=== PATIENT | male | born 1940 | race Caucasian/White ===

== ENCOUNTER 2018-04-25 09:31 | Inpatient (IN) ==
[2018-04-25] MEDS ORDERED: LIDOCAINE HCL 1% 20 ML VIAL ONE (09:51)
[2018-04-25] MEDS ORDERED: NiCARDipine HCL INJ 2.5 MG/ML 10 ML AMP ONE (10:05)
[2018-04-25] MEDS ORDERED: HEPARIN (PORCINE) 1000 UNIT/ML 10 ML (CATH LAB USE ONLY) ONE (10:05)
[2018-04-25] MEDS ORDERED: fentaNYL citrate 100 MCG/2 ML VIAL ONE (10:05)
[2018-04-25] MEDS ORDERED: MIDAZOLAM HCL 1 MG/ML 2ML VIAL ONE (10:05)
[2018-04-25] MEDS ORDERED: NITROGLYCERIN/D5W 100MCG/ML 20ML SYR ONE (10:06)
--- NOTE | 2018-04-25 10:33 | Emergency Department Note ---
Entered by Juana Gavin acting as a scribe for History of Present Illness General Chief complaint: Heart Alert Stated complaint: heart alert Time Seen by Provider: 04/25/18 09:35 History of Present Illness Onset (ago): hour(s) (0820 this moring) Location: chest (sub sternal) Pain Consistency: + other (after shoveling 10-15 feet of snow) Maximum Pain Intensity: 10 Current Pain Intensity: 0 Quality: + other (chest pain, pressure) Associated symptoms: + shortness of breath and + other (Positive nausea, diaphoresis) Treatments prior to arrival: aspirin and other (3 nitro) The patient is a 77 year old male who presents to the Emergency Room with complaints of chest pain beginning around 0820 this morning. As per EMS, the patient went outside at 0600 this morning and was running a snowblower. At 0820 , he went back outside and shoveled about 10-15 feet from the backdoor to this garage when he suddenly developed substernal chest pressure but thought it was indigestion. EMS states the patient sat down but after 20 minutes his pain persisted so he called EMS. When EMS got there, the patient was sitting in a chair and was pale, diaphoretic, nauseous, short of breath, and holding his chest. En route, the patient was given 1 aspirin and a total of 3 nitro with the last being at 1000 this morning. After the medications, the patient's pain came down from a 10/10 in severity to a 7/10. Currently, the patient rates his chest pain as a 0/10 in severity. Home Medications Home Medications Medication Instructions Recorded Confirmed Type atorvastatin 40 mg PO DAILY 04/25/18 04/25/18 History clopidogrel 75 mg PO DAILY 04/25/18 04/25/18 History levothyroxine 175 mcg PO DAILY 04/25/18 04/25/18 History lisinopril 10 mg PO DAILY 04/25/18 04/25/18 History Allergies Allergy/AdvReac Type Severity Reaction Status Date / Time latex Allergy Rash Verified 04/25/18 18:24 Past Med/Surg History Medical History Chronic kidney disease, stage III (moderate) Diet-controlled type 2 diabetes mellitus Displacement of lumbar intervertebral disc without myelopathy Dyslipidemia History of TIA (transient ischemic attack) History of skin cancer Hypertension Hypothyroidism No significant past medical history Peripheral vascular disease Psoriasis vulgaris Sensorineural hearing loss of combined sites Surgical History Status post carotid endarterectomy Family History Other Family history non-contributory Social History marital status: Current Living Situation: Spouse Feels Safe at Home: Yes Safety Concerns: Feels Safe At This Time Smoking Status: Former smoker Hx Alcohol Use: No Hx Substance Use: No Beliefs That Will Affect Care: None Preferred Language: Maltese Communication Ability: Effective Review of Systems See HPI for pertinent positives & negatives. and A total of 10 systems reviewed and were otherwise negative Physical Exam Vital Signs Vital Signs - 24 hr 04/25/18 10:12 04/25/18 10:18 04/25/18 10:27 Temperature Temperature Source Sepsis Recent Fever Within 48 Hours No Sepsis New/Unexplained Change in Mental Status No Sepsis Action Taken by Nursing No Action Required Pulse Rate 68 83 Pulse Rate [Apical] Pulse Rhythm [Apical] Pulse Strength [Apical] Respiratory Rate 17 16 Respiratory Effort / Characteristics Respiratory Depth Respiratory Pattern Blood Pressure 147/75 H Blood Pressure [Left Arm] Blood Pressure Mean 99 Blood Pressure Mean [Left Arm] Blood Pressure Position [Left Arm] Pulse Oximetry 95 Oxygen Delivery Method Nasal Cannula 04/25/18 12:00 04/25/18 12:13 04/25/18 12:15 Temperature 36.6 C Temperature Source Oral Sepsis Recent Fever Within 48 Hours Sepsis New/Unexplained Change in Mental Status Sepsis Action Taken by Nursing Pulse Rate 58 L 59 L Pulse Rate [Apical] 58 L Pulse Rhythm [Apical] Regular Pulse Strength [Apical] Normal Respiratory Rate 18 18 25 H Respiratory Effort / Characteristics Non-Labored Spontaneous Respiratory Depth Normal Respiratory Pattern Regular Blood Pressure 124/61 127/71 Blood Pressure [Left Arm] Blood Pressure Mean 82 89 Blood Pressure Mean [Left Arm] Blood Pressure Position [Left Arm] Pulse Oximetry 98 97 96 Oxygen Delivery Method Room Air Room Air Room Air 04/25/18 12:30 04/25/18 12:44 04/25/18 12:45 Temperature Temperature Source Sepsis Recent Fever Within 48 Hours Sepsis New/Unexplained Change in Mental Status Sepsis Action Taken by Nursing Pulse Rate 58 L 59 L 60 Pulse Rate [Apical] Pulse Rhythm [Apical] Pulse Strength [Apical] Respiratory Rate 17 19 18 Respiratory Effort / Characteristics Respiratory Depth Respiratory Pattern Blood Pressure 131/74 141/67 H Blood Pressure [Left Arm] Blood Pressure Mean 93 91 Blood Pressure Mean [Left Arm] Blood Pressure Position [Left Arm] Pulse Oximetry 97 97 97 Oxygen Delivery Method Room Air Room Air Room Air 04/25/18 13:15 04/25/18 13:30 04/25/18 13:45 Temperature Temperature Source Sepsis Recent Fever Within 48 Hours Sepsis New/Unexplained Change in Mental Status Sepsis Action Taken by Nursing Pulse Rate 60 60 62 Pulse Rate [Apical] Pulse Rhythm [Apical] Pulse Strength [Apical] Respiratory Rate 16 22 20 Respiratory Effort / Characteristics Respiratory Depth Respiratory Pattern Blood Pressure 143/79 H 140/74 156/76 H Blood Pressure [Left Arm] Blood Pressure Mean 100 96 102 Blood Pressure Mean [Left Arm] Blood Pressure Position [Left Arm] Pulse Oximetry 97 98 98 Oxygen Delivery Method Room Air Room Air Room Air 04/25/18 14:00 04/25/18 14:15 04/25/18 14:30 Temperature Temperature Source Sepsis Recent Fever Within 48 Hours Sepsis New/Unexplained Change in Mental Status Sepsis Action Taken by Nursing Pulse Rate 62 60 61 Pulse Rate [Apical] Pulse Rhythm [Apical] Pulse Strength [Apical] Respiratory Rate 17 16 20 Respiratory Effort / Characteristics Respiratory Depth Respiratory Pattern Blood Pressure 144/76 H 146/87 H 148/80 H Blood Pressure [Left Arm] Blood Pressure Mean 98 106 102 Blood Pressure Mean [Left Arm] Blood Pressure Position [Left Arm] Pulse Oximetry 98 98 97 Oxygen Delivery Method Room Air Room Air Room Air 04/25/18 15:00 04/25/18 16:00 04/25/18 17:00 Temperature 36.8 C Temperature Source Sepsis Recent Fever Within 48 Hours Sepsis New/Unexplained Change in Mental Status Sepsis Action Taken by Nursing Pulse Rate 60 66 66 Pulse Rate [Apical] Pulse Rhythm [Apical] Pulse Strength [Apical] Respiratory Rate 20 13 20 Respiratory Effort / Characteristics Respiratory Depth Respiratory Pattern Blood Pressure 162/81 H 167/80 H 153/93 H Blood Pressure [Left Arm] Blood Pressure Mean 108 109 113 Blood Pressure Mean [Left Arm] Blood Pressure Position [Left Arm] Pulse Oximetry 96 98 95 Oxygen Delivery Method Room Air Room Air 04/25/18 18:00 Temperature Temperature Source Sepsis Recent Fever Within 48 Hours Sepsis New/Unexplained Change in Mental Status Sepsis Action Taken by Nursing Pulse Rate Pulse Rate [Apical] 65 Pulse Rhythm [Apical] Regular Pulse Strength [Apical] Normal Respiratory Rate 18 Respiratory Effort / Characteristics Non-Labored Spontaneous Respiratory Depth Normal Respiratory Pattern Regular Blood Pressure Blood Pressure [Left Arm] 131/76 Blood Pressure Mean Blood Pressure Mean [Left Arm] 94 Blood Pressure Position [Left Arm] Lying Pulse Oximetry 96 Oxygen Delivery Method Room Air GENERAL: Patient is awake alert. He is mildly anxious appearing but appears overall comfortable. EYES: The conjunctivae are clear. The pupils are round and reactive. EARS, NOSE, MOUTH AND THROAT: The nose is without any evidence of any deformity. Mucous membranes are moist tongue is midline NECK: The neck is nontender and supple. RESPIRATORY: Normal respiratory effort is noted there is no evidence of wheezing rhonchi or rales CARDIOVASCULAR: Ectopy was noted to auscultation. There is no definite murmur noted. GASTROINTESTINAL: The abdomen is soft. Bowel sounds are present in all quadrants. Abdomen is nontender MUSCULOSKELETAL/EXTREMITIES: There is no evidence of gross deformity full range of motion is noted in the hips and shoulders SKIN: There is no obvious evidence of any rash. Trace pedal edema was noted. Skin was warm and dry. Pulses were symmetric in both wrists. NEUROLOGIC: Patient is awake alert and oriented x3. Course 1009: Past medical records reviewed. The patient was evaluated in room B1, and a complete history and physical examination were performed. 1023: I reviewed the patient's case with Jerad Nieto. He was at the bedside on arrival of the patient. 1025: The patient will be further evaluated at the medical laboratory scientist. 1042: I reviewed the patient's case with BERNARDO Stroud [facility] He will evaluate the patient for further management. Consultations Consultation #1: I reviewed the patient's case with Jerad Nieto. He was at the bedside on arrival of the patient. Time: 10:23 Consultation #2: I reviewed the patient's case with BERNARDO Stroud who is [facility] He will evaluate the patient for further management. Time: 10:42 Administered Medications Al Hydrox/Mg Hydrox/Simethicone (Maalox) 30 ml PO Q6H PRN PRN Reason: Dyspepsia Stop: 05/25/18 18:17 Last Admin: 04/25/18 18:30 Dose: 30 ml Atorvastatin Calcium (Lipitor) 80 mg PO QAM [facility] Stop: 05/25/18 14:29 Last Admin: 04/25/18 17:21 Dose: 80 mg Sodium Chloride (Nss 1000ml) 1,000 mls @ 75 mls/hr IV .[id number] [facility] Stop: 05/25/18 12:29 Last Admin: 04/25/18 13:11 Dose: 75 mls/hr Discontinued Medications Enoxaparin Sodium (Lovenox) 40 mg SQ Q24H [facility] Stop: 05/25/18 13:29 Last Admin: 04/25/18 14:30 Dose: Not Given Fentanyl Citrate (Fentanyl Citrate) Confirm Administered Dose 100 mcg .ROUTE .STK-MED ONE Stop: 04/25/18 10:06 Last Admin: 04/25/18 11:31 Dose: 50 mcg Heparin Sodium (Porcine) (Heparin Iv Bolus (Fisheries Specialist Use Only)) Confirm Administered Dose 10,000 units .ROUTE .STK-MED ONE Stop: 04/25/18 10:06 Last Admin: 04/25/18 11:32 Dose: 10,000 units Heparin Sodium/Sodium Chloride (Heparin Sod/Nss 2 Units/Ml) Confirm Administered Dose 3,000 units IV .STK-MED ONE Stop: 04/25/18 10:07 Last Admin: 04/25/18 11:33 Dose: 3,000 units Labetalol HCl (Normodyne (Fisheries Specialist Use Only)) Confirm Administered Dose 5 mg .ROUTE .STK-MED ONE Stop: 04/25/18 11:24 Last Admin: 04/25/18 11:34 Dose: 10 mg Lidocaine HCl (Xylocaine 1% (Local)) Confirm Administered Dose 20 ml .ROUTE .STK -MED ONE Stop: 04/25/18 09:52 Last Admin: 04/25/18 11:30 Dose: 20 ml Midazolam HCl (Versed) Confirm Administered Dose 2 mg .ROUTE .STK-MED ONE Stop: 04/25/18 10:06 Last Admin: 04/25/18 11:32 Dose: 2 mg Nicardipine HCl (Cardene) Confirm Administered Dose 25 mg .ROUTE .STK-MED ONE Stop: 04/25/18 10:06 Last Admin: 04/25/18 11:31 Dose: 25 mg Nitroglycerin/Dextrose (Nitroglycerin/D5w 100 Mcg/Ml 20ml Syringe) Confirm Administered Dose 2,000 mcg .ROUTE .STK-MED ONE Stop: 04/25/18 10:07 Last Admin: 04/25/18 13:06 Dose: Not Given Ticagrelor (Brilinta) Confirm Administered Dose 180 mg PO .STK-MED ONE Stop: 04/25/18 11:02 Last Admin: 04/25/18 11:33 Dose: 180 mg Medical Decision Making Differential Diagnosis Differential diagnosis: Etiologies such as cardiac ischemia, aortic dissection, pulmonary embolism, pneumonia, pneumothorax, musculoskeletal, infections, pericarditis, myocarditis , esophageal rupture, gastrointestinal, as well as others were entertained. Medical Records Attestation: I reviewed the patient's medical records. Home Medications Current Medication List: was personally reviewed by me Laboratory Data Attestation: I reviewed the patient's lab results. Result diagrams: 04/25/18 10:35 04/25/18 10:35 Lab Results 04/25/18 04/25/18 04/25/18 Range/Units 10:35 10:35 10:35 WBC 12.70 H (4.8-10.8) K/uL RBC 4.60 L (4.7-6.1) M/uL Hgb 14.1 (14.0-18.0) g/dL Hct 42.3 (42-52) % MCV 92.0 (80-100) fL MCH 30.7 (25-34) pg MCHC 33.3 (32-36) g/dL RDW Std Deviation 43.8 (36.4-46.3) fL RDW Coeff of Shyam 13.1 (11.5-14.5) % Plt Count 248 (130-400) K/uL MPV 11.2 H (7.4-10.4) fL Immature Gran % (Auto) 0.3 % Neut % (Auto) 77.6 % Lymph % (Auto) 13.3 % Cocke % (Auto) 8.0 % Eos % (Auto) 0.6 % Baso % (Auto) 0.2 % Immature Gran # (Auto) 0.04 H (0.00-0.02) K/uL Neut # (Auto) 9.86 H (1.4-6.5) K/uL Lymph # (Auto) 1.69 (1.2-3.4) K/uL Cocke # (Auto) 1.01 H (0.11-0.59) K/uL Eos # (Auto) 0.07 (0-0.5) K/uL Baso # (Auto) 0.03 (0-0.2) K/uL PT 11.1 (9.0-12.0) Seconds INR 1.1 (0.9-1.1) APTT 98.2 H* (21.0-31.0) Seconds PTT Ratio 3.8 Sodium 138 (136-145) mmol/L Potassium 4.1 (3.5-5.1) mmol/L Chloride 109 H (98-107) mmol/L Carbon Dioxide 21 (21-32) mmol/L Anion Gap 8.0 (3-11) BUN 25 H (7-18) mg/dl Creatinine 1.21 (0.6-1.4) mg/dl Est Cr Clr Drug Dosing 67.0 ml/min Est GFR ( Amer) 65.6 Est GFR (Non-Af Amer) 56.6 BUN/Creatinine Ratio 20.6 H (10-20) Glucose 187 H (70-99) mg/dl POC Glucose (70-99) Calcium 8.3 L (8.5-10.1) mg/dl Magnesium (1.8-2.4) mg/dl Total Bilirubin 0.6 (0.2-1) mg/dl AST 33 (15-37) U/L ALT 44 (12-78) U/L Alkaline Phosphatase 55 (45-117) U/L Total Creatine Kinase 219 (39-308) U/L CK-MB (CK-2) 4.3 H (0.5-3.6) ng/ml CK/CKMB % Calc 2.0 (0-3.0) Troponin I 0.110 H* (0-0.045) ng/ml Total Protein 6.8 (6.4-8.2) gm/dl Albumin 3.0 L (3.4-5.0) gm/dl Globulin 3.8 (2.5-4.0) gm/dl Albumin/Globulin Ratio 0.8 L (0.9-2) Triglycerides Cholesterol LDL Cholesterol, Calc VLDL Cholesterol, Calc HDL Cholesterol Cholesterol/HDL Ratio Lipase 126 (73-393) U/L Nasal Screen MRSA (PCR) (Negative) 04/25/18 04/25/18 04/25/18 Range/Units 10:35 10:35 11:55 WBC (4.8-10.8) K/uL RBC (4.7-6.1) M/uL Hgb (14.0-18.0) g/dL Hct (42-52) % MCV (80-100) fL MCH (25-34) pg MCHC (32-36) g/dL RDW Std Deviation (36.4-46.3) fL RDW Coeff of Shyam (11.5-14.5) % Plt Count (130-400) K/uL MPV (7.4-10.4) fL Immature Gran % (Auto) % Neut % (Auto) % Lymph % (Auto) % Cocke % (Auto) % Eos % (Auto) % Baso % (Auto) % Immature Gran # (Auto) (0.00-0.02) K/uL Neut # (Auto) (1.4-6.5) K/uL Lymph # (Auto) (1.2-3.4) K/uL Cocke # (Auto) (0.11-0.59) K/uL Eos # (Auto) (0-0.5) K/uL Baso # (Auto) (0-0.2) K/uL PT (9.0-12.0) Seconds INR (0.9-1.1) APTT (21.0-31.0) Seconds PTT Ratio Sodium (136-145) mmol/L Potassium (3.5-5.1) mmol/L Chloride (98-107) mmol/L Carbon Dioxide (21-32) mmol/L Anion Gap (3-11) BUN (7-18) mg/dl Creatinine (0.6-1.4) mg/dl Est Cr Clr Drug Dosing ml/min Est GFR ( Amer) Est GFR (Non-Af Amer) BUN/Creatinine Ratio (10-20) Glucose (70-99) mg/dl POC Glucose (70-99) Calcium (8.5-10.1) mg/dl Magnesium 2.0 (1.8-2.4) mg/dl Total Bilirubin (0.2-1) mg/dl AST (15-37) U/L ALT (12-78) U/L Alkaline Phosphatase (45-117) U/L Total Creatine Kinase (39-308) U/L CK-MB (CK-2) (0.5-3.6) ng/ml CK/CKMB % Calc (0-3.0) Troponin I (0-0.045) ng/ml Total Protein (6.4-8.2) gm/dl Albumin (3.4-5.0) gm/dl Globulin (2.5-4.0) gm/dl Albumin/Globulin Ratio (0.9-2) Triglycerides Cancelled 130 Cholesterol Cancelled 145 LDL Cholesterol, Calc Cancelled 78 VLDL Cholesterol, Calc Cancelled 26 HDL Cholesterol Cancelled 41 Cholesterol/HDL Ratio Cancelled 4 Lipase (73-393) U/L Nasal Screen MRSA (PCR) Negative (Negative) 04/25/18 04/25/18 Range/Units 16:41 17:57 WBC (4.8-10.8) K/uL RBC (4.7-6.1) M/uL Hgb (14.0-18.0) g/dL Hct (42-52) % MCV (80-100) fL MCH (25-34) pg MCHC (32-36) g/dL RDW Std Deviation (36.4-46.3) fL RDW Coeff of Shyam (11.5-14.5) % Plt Count (130-400) K/uL MPV (7.4-10.4) fL Immature Gran % (Auto) % Neut % (Auto) % Lymph % (Auto) % Cocke % (Auto) % Eos % (Auto) % Baso % (Auto) % Immature Gran # (Auto) (0.00-0.02) K/uL Neut # (Auto) (1.4-6.5) K/uL Lymph # (Auto) (1.2-3.4) K/uL Cocke # (Auto) (0.11-0.59) K/uL Eos # (Auto) (0-0.5) K/uL Baso # (Auto) (0-0.2) K/uL PT (9.0-12.0) Seconds INR (0.9-1.1) APTT (21.0-31.0) Seconds PTT Ratio Sodium (136-145) mmol/L Potassium (3.5-5.1) mmol/L Chloride (98-107) mmol/L Carbon Dioxide (21-32) mmol/L Anion Gap (3-11) BUN (7-18) mg/dl Creatinine (0.6-1.4) mg/dl Est Cr Clr Drug Dosing ml/min Est GFR ( Amer) Est GFR (Non-Af Amer) BUN/Creatinine Ratio (10-20) Glucose (70-99) mg/dl POC Glucose 118 H (70-99) Calcium (8.5-10.1) mg/dl Magnesium (1.8-2.4) mg/dl Total Bilirubin (0.2-1) mg/dl AST (15-37) U/L ALT (12-78) U/L Alkaline Phosphatase (45-117) U/L Total Creatine Kinase (39-308) U/L CK-MB (CK-2) (0.5-3.6) ng/ml CK/CKMB % Calc (0-3.0) Troponin I 4.720 H* (0-0.045) ng/ml Total Protein (6.4-8.2) gm/dl Albumin (3.4-5.0) gm/dl Globulin (2.5-4.0) gm/dl Albumin/Globulin Ratio (0.9-2) Triglycerides Cholesterol LDL Cholesterol, Calc VLDL Cholesterol, Calc HDL Cholesterol Cholesterol/HDL Ratio Lipase (73-393) U/L Nasal Screen MRSA (PCR) (Negative) ECG Data Attestation: I personally reviewed and interpreted this ECG as follows: Indication: chest pain Rate (beats per minute): 62 Rhythm: normal sinus Findings: + other (persistence of previously noted ST depression) and + PAC Additional Comments: Pre hospital EKG: sinus bradycardia, 59, no ectopy, inferior and anterior ST depressions noted, lateral TWI, appears to be consistent with posterior wall NM Second pre hospital EKG: normal sinus, 60, PAC, diffuse ST depressions noted, similar to earlier tracing Blood Pressure Blood Pressure Findings: Elevated blood pressure Blood Pressure Disposition: further management by hospitalist TONI Caraballo The patient is a 77-year-old male who presented to the emergency department for an evaluation of chest discomfort. The patient developed chest discomfort while shoveling snow. I was notified by the prehospital personnel that they were concerned the patient's EKG was consistent with an acute NM. We were unable to receive the patient's EKG initially but because of the current weather conditions and the paramedics read on the EKG the patient was made a heart alert prior to receiving his EKG. The patient was 40 minutes out initially so we were able to assemble the cardiac catheterization team prior to the patient's arrival. When he arrived to the emergency department I reviewed the patient's EKGs which did arrive shortly before the patient did reveal signs of ischemia with posterior wall NM. The patient was treated with aspirin and nitroglycerin prior to arrival. Upon arrival he did not have any further chest pain. The patient was evaluated by myself as well as the sand cutter operator immediately upon arrival. The patient's findings were felt to be consistent with acute ischemia. For this reason the patient was taken directly to the cardiac catheterization lab. I discussed the patient's EKG and presentation with him. He was agreeable to cardiac catheterization at this time. I also discussed his findings with his significant other. I also discussed this case with the on-call [facility] hospitalist group. They have agreed to evaluate the patient after cardiac catheterization for further inpatient management. Impression & Plan Acute NM, true posterior wall, Unstable angina Discharge Plan Visit Data *Final* Discharge Date/Time: 04/25/18 10:34 Chief Complaint: Heart Alert Stated Complaint: heart alert ED Provider: Jl Agarwal Discharge Problem: Acute NM, true posterior wall, Unstable angina Patient Disposition: Still a Patient Discharge Instructions Interventions: ED Discharge Assessment Last Done: 04/25/18 10:34 The scribe's documentation has been prepared under my direction and personally reviewed by me in its entirety. I confirm that the note above accurately reflects all work, treatment, procedures, and medical decision making performed by me.
[2018-04-25 10:45] LABS: Basophils # (auto) 0.03 K/uL (0-0.2); Basophils % (auto) 0.2 %; Eosinophils # (auto) 0.07 K/uL (0-0.5); Eosinophils % (auto) 0.6 %; Hematocrit (blood only) 42.3 % (42-52); Hemoglobin 14.1 g/dL (14.0-18.0); Immature Granulocytes # (auto) 0.04 K/uL (0.00-0.02); Immature Granulocytes % (auto) 0.3 %; Lymphocytes # (auto) 1.69 K/uL (1.2-3.4); Lymphocytes % (auto) 13.3 %; Mean Corpuscular Hgb Conc 33.3 g/dL (32-36); Mean Platelet Volume 11.2 fL (7.4-10.4); Monocytes # (auto) 1.01 K/uL (0.11-0.59); Neutrophils # (auto) 9.86 K/uL (1.4-6.5); Neutrophils % (auto) 77.6 %; Platelet Count 248 K/uL (130-400); RDW Coefficient of Variation 13.1 % (11.5-14.5); RDW Standard Deviation 43.8 fL (36.4-46.3)
[2018-04-25] MEDS ORDERED: TICAGRELOR 90 MG TAB PO ONE (11:01)
[2018-04-25 11:02] LABS: BUN Creatinine Ratio 20.6 (10-20); Calcium 8.3 mg/dl (8.5-10.1); Est GFR (African American) 65.6; Est GFR (Non-African American) 56.6; Potassium 4.1 mmol/L (3.5-5.1)
[2018-04-25 11:04] LABS: INR 1.1 (0.9-1.1); Partial Thromboplastin Ratio 3.8; Prothrombin Time 11.1 Seconds (9.0-12.0)
[2018-04-25 11:07] LABS: Partial Thromboplastin Time 98.2 Seconds (21.0-31.0)
[2018-04-25 11:12] LABS: Albumin Globulin Ratio 0.8 (0.9-2); Bilirubin,Total 0.6 mg/dl (0.2-1); Creatine Kinase MB 4.3 ng/ml (0.5-3.6); Globulin 3.8 gm/dl (2.5-4.0); Total Protein 6.8 gm/dl (6.4-8.2); Troponin I 0.11 ng/ml (0-0.045)
[2018-04-25] MEDS ORDERED: ICU PROTOCOL FOR HYPERGLYCEMIA PRN (11:15)
[2018-04-25] MEDS ORDERED: LABETALOL HCL IV 5 MG/ML 20ML (CATH LAB USE ONLY) ONE (11:23)
[2018-04-25] MEDS ORDERED: ACETAMINOPHEN 325 MG TAB PO PRN (11:26)
[2018-04-25] MEDS ORDERED: ATROPINE SULFATE 0.1 MG/ML 10ML SYR IV PRN (11:26)
[2018-04-25] MEDS ORDERED: ONDANSETRON INJ 2 MG/ML 2 ML VIAL IV PRN (11:26)
--- NOTE | 2018-04-25 11:48 | History & Physical Report ---
Date of Service April 25, 2018 Assessment & Plan (1) Acute OR, true posterior wall: Patient presented to ED from home via ambulance Heart alert called and patient seen by Dr. Kim Taken to cardiac Biology Manager and PCI was performed with single drug-eluting stent Patient was started on Brilinta Patient is on clopidogrel at home Continue aspirin 81 mg p.o. daily Start Lopressor 25 mg p.o. twice daily Transfer to the intensive care unit for monitoring for bleeding Previous echocardiogram in June 2014 with left ventricular ejection fraction of 64%. LV wall thickness mildly increased. Aortic valve was mildly calcified but not stenosed. Estimated pulmonary arterial the systolic pressures 22 mmHg. No other valvular disease or wall motion irregularity Present on Admission?: Yes (2) Chronic kidney disease, stage III (moderate): Creatinine is 1.21 with a BUN of 25 GFR 56 Follow serial labs Patient with chronic kidney disease stage III listed in his outpatient chart (3) Hypothyroidism: Check a TSH Continue levothyroxine 175 micrograms p.o. daily (4) Hypertension: Continue lisinopril 5 mg p.o. daily Monitor on telemetry (5) Dyslipidemia: Atorvastatin 40 mg p.o. daily (6) Diet-controlled type 2 diabetes mellitus: Outpatient hemoglobin A1c November 2017 was 6.4 (7) History of TIA (transient ischemic attack): Currently takes clopidogrel 75 mg p.o. daily and aspirin 81 mg p.o. daily (8) DVT prophylaxis: Patient on clopidogrel as an outpatient Started on Brilinta by Dr. Kim Further chemical prophylaxis per cardiology Dr. Wood will be the attending for this patient. Please refer to his addendum for further recommendations regarding treatment plan. History of Present Illness Primary Care Provider: Reed Britton Attending physician will be Dr. Wood This is a 77-year-old male who was shoveling snow this morning with chest pain. 911 was called and the ambulance transported the patient from his home to [facility] emergency department. Patient was found to have ST changes in the posterior section with rapid development of further ST changes. A heart alert was called and patient was presented to the cardiac catheterization lab with Dr. Kim. A single drug-eluting stent was placed to the RCA. Patient had no complications from the procedure. Patient was started on Brilinta. It was then discovered the patient was also on clopidogrel at home per patient list from [facility] in [place]. This will be clarified by the patient's family who does not have a med list or meds present at this time. The patient follows with Dr. Britton at the [facility]. He has a past medical history of peripheral vascular disease, stage III chronic kidney disease, hypothyroidism, psoriasis vulgaris, hearing loss, hypertension, dyslipidemia, and history of TIA, diabetes mellitus type 2. His most recent hemoglobin A1c was in November 2017 and was 6.4. The patient denies any insulin use or diabetic oral medications. The patient was seen in the catheterization lab status post PCI and had no chest pain, nausea, vomiting, diarrhea. He has no recent illness. He was doing well until this morning when he had the chest pain. He denies any dysphasia. He has no difficulty with eating. He is a former smoker having quit smoking April 06, 1959 with a 1 pack/day 10- pack-year history He lives with his and Meño Garrison. In discussion with his he is a level 1 full code. Outpatient medications include: Levothyroxine 175 mcg daily Lisinopril 5 mg p.o. daily Clopidogrel 75 mg daily Lipitor 40 mg p.o. daily Lorazepam 0.5 mg 3 times daily as needed for anxiety Aspirin 81 mg p.o. daily Allergies Allergy/AdvReac Type Severity Reaction Status Date / Time latex Allergy Rash Verified 04/25/18 18:24 Home Medications Home Medications Medication Instructions Recorded Confirmed Type atorvastatin 40 mg PO DAILY 04/25/18 04/25/18 History clopidogrel 75 mg PO DAILY 04/25/18 04/25/18 History levothyroxine 175 mcg PO DAILY 04/25/18 04/25/18 History lisinopril 10 mg PO DAILY 04/25/18 04/25/18 History Past Med/Surg History Medical History Chronic kidney disease, stage III (moderate) Diet-controlled type 2 diabetes mellitus Displacement of lumbar intervertebral disc without myelopathy Dyslipidemia History of TIA (transient ischemic attack) History of skin cancer Hypertension Hypothyroidism No significant past medical history Peripheral vascular disease Psoriasis vulgaris Sensorineural hearing loss of combined sites Surgical History Status post carotid endarterectomy Family History Other Family history non-contributory Social History marital status: Current Living Situation: Spouse Feels Safe at Home: Yes Safety Concerns: Feels Safe At This Time Smoking Status: Former smoker Hx Alcohol Use: No Hx Substance Use: No Beliefs That Will Affect Care: None Preferred Language: Sierra Leonean Communication Ability: Effective Review of Systems All systems reviewed & are unremarkable except as noted in HPI & below Physical Exam 2 Vital Signs (Past 24 Hours): Last Vital Signs Pulse 83 04/25/18 10:18 Resp 16 04/25/18 10:18 BP 147/75 H 04/25/18 10:12 Pulse Ox 95 04/25/18 10:12 Physical Exam: GENERAL : No acute distress. Pleasant EYES: No icterus, gaze conjugate NOSE: No evidence of epistaxis MOUTH: No lesions or candidiasis NECK: Supple, no carotid bruits or stridor appreciated. There is a well- healed surgical scar over the right carotid artery LUNGS: CTA B/L, no wheezes, rales or rhonchi HEART: Regular, rate controlled. No ectopy ABDOMEN: Soft, NT, ND, BS Present EXTREMITIES: No LE edema, palpable pedal pulse intact on right. Pedal pulse by doppler on left. Left foot is cooler than right foot NEURO: A&OX3 Results & Data Laboratory Results 04/25/18 04/25/18 04/25/18 10:35 10:35 10:35 WBC 12.70 H RBC 4.60 L Hgb 14.1 Hct 42.3 MCV 92.0 MCH 30.7 MCHC 33.3 RDW Std Deviation 43.8 RDW Coeff of Shyam 13.1 Plt Count 248 MPV 11.2 H Immature Gran % (Auto) 0.3 Neut % (Auto) 77.6 Lymph % (Auto) 13.3 [place] % (Auto) 8.0 Eos % (Auto) 0.6 Baso % (Auto) 0.2 Immature Gran # (Auto) 0.04 H Neut # (Auto) 9.86 H Lymph # (Auto) 1.69 [place] # (Auto) 1.01 H Eos # (Auto) 0.07 Baso # (Auto) 0.03 PT 11.1 INR 1.1 APTT 98.2 H* PTT Ratio 3.8 Sodium 138 Potassium 4.1 Chloride 109 H Carbon Dioxide 21 Anion Gap 8.0 BUN 25 H Creatinine 1.21 Est Cr Clr Drug Dosing 67.0 Est GFR ( Amer) 65.6 Est GFR (Non-Af Amer) 56.6 BUN/Creatinine Ratio 20.6 H Glucose 187 H Calcium 8.3 L Total Bilirubin 0.6 AST 33 ALT 44 Alkaline Phosphatase 55 Total Creatine Kinase 219 CK-MB (CK-2) 4.3 H CK/CKMB % Calc 2.0 Troponin I 0.110 H* Total Protein 6.8 Albumin 3.0 L Globulin 3.8 Albumin/Globulin Ratio 0.8 L Lipase 126 Code Status & VTE Plan Code Status Level One full code VTE Prophylaxis Plan VTE Prophylaxis will be ordered: Yes Critical Care Time Critical Care Time: No Supervising Physician Co-Signing Physician Notes Attending Addendum: care coordinated with BERNARDO Alegria please refer to her notes for full details, I agree with her notes patient seen and examined, records reviewed by myself as well on exam, patient seen resting in bed, comfortable chest pain free in good spirits no other symptoms VS noted and reviewed oriented x 3 , not in distress, speaks in sentences with no effort nor accessory muscle use normal rate, regular rhythm, no murmurs clear breath sounds bilaterally non distended, soft, nontender no bipedal edema, erythema, warmth no neuro deficits WBC 12.7 Hg 14 Crea 1.2 ASSESSMENT AND PLAN> ACUTE OR s/p stent on ASA, Brillinta, Metoprolol monitor in ICU HTN continue Lisinopril other diagnoses and plan of care as per BERNARDO Alegria Notes Augusto Wood MD
[2018-04-25] MEDS: SODIUM CHLORIDE 0.9% 1000ML 1,000 ML IV SCH ×2 (13:11→22:36)
[2018-04-25] MEDS ORDERED: ENOXAPARIN INJ 40 MG/0.4 ML SYR SQ SCH (13:30)
--- NOTE | 2018-04-25 14:10 | Critical Care Consultation ---
Date of Consultation April 25, 2018 Assessment & Plan (1) Acute AR, true posterior wall: Continue Brilinta per cardiology Continue aspirin 81 mg p.o. daily Start Lopressor 25 mg p.o. twice daily Echocardiogram pending (2) Chronic kidney disease, stage III (moderate): Normal saline 75 mils per hour (3) Hypothyroidism: Continue outpatient supplemental thyroid (4) Hypertension: Continue lisinopril 5 mg p.o. daily Monitor on telemetry (5) Dyslipidemia: High intensity statin (6) Diet-controlled type 2 diabetes mellitus: Outpatient hemoglobin A1c November 2017 was 6.4 (7) History of TIA (transient ischemic attack): Brilinta and aspirin (8) DVT prophylaxis: Lovenox 40 mg daily History of Present Illness Reason for Consultation: Still elevation AR Requesting Physician: Augusto Reyes Attending Physician: Alfredo Bundy, History of Present Illness Patient is a 77-year-old male with a past medical history of hypothyroidism, hypertension, hyperlipidemia, anxiety, coronary artery disease, history of TIA who presented after chest pain following shoveling snow in his drive. In the emergency department he was treated as a heart alert and taken to the [facility]. In the [facility] he received a single drug-eluting stent. Patient had some mild oozing from the femoral cannulation site. He has had complete resolution of his chest pain. Allergies Allergy/AdvReac Type Severity Reaction Status Date / Time No Known Allergies Allergy Unverified 04/25/18 10:20 Home Medications Home Medications Medication Instructions Recorded Confirmed Type atorvastatin 40 mg PO DAILY 04/25/18 04/25/18 History clopidogrel 75 mg PO DAILY 04/25/18 04/25/18 History levothyroxine 175 mcg PO DAILY 04/25/18 04/25/18 History lisinopril 10 mg PO DAILY 04/25/18 04/25/18 History Patient History Medical History Chronic kidney disease, stage III (moderate) Diet-controlled type 2 diabetes mellitus Displacement of lumbar intervertebral disc without myelopathy Dyslipidemia History of TIA (transient ischemic attack) History of skin cancer Hypertension Hypothyroidism No significant past medical history Peripheral vascular disease Psoriasis vulgaris Sensorineural hearing loss of combined sites Surgical History Status post carotid endarterectomy Family History Other Family history non-contributory Social History marital status: Current Living Situation: Spouse Feels Safe at Home: Yes Safety Concerns: Feels Safe At This Time Smoking Status: Former smoker Hx Alcohol Use: No Hx Substance Use: No Beliefs That Will Affect Care: None Preferred Language: [place]araguan Communication Ability: Effective Review of Systems Denies chest pain shortness of breath, change in bowel habits, melena, hematochezia Review of systems are otherwise negative Physical Exam 2 Vital Signs (Past 24 Hours): Last Vital Signs Temp 36.6 C 04/25/18 12:13 Pulse 60 04/25/18 12:45 Resp 18 04/25/18 12:45 BP 141/67 H 04/25/18 12:45 Pulse Ox 97 04/25/18 12:45 General: A well-nourished elderly male who appears stated age I have reviewed the recorded vital signs Neurological: RASS score: +1, Moves all 4 extremities, Psychological: GCS 15 following complex commands Eyes: Pupils are equal, round and reactive to light, anicteric sclera. Symmetrical lids. HENT: Oropharynx is clear, mucous membranes are moist, . Neck: Supple. Symmetric. trachea midline. No thyromegaly. Cardiovascular: Normal peripheral perfusion. Distal pulses and capillary refill intact. No JVD. Respiratory: Respirations are non-labored, no accessory muscle use. Breath sounds are equal. Gastrointestinal: Soft. Non-distended. Lymphatic: No cervical lymphadenopathy. Musculoskeletal: No deformity. No clubbing nor cyanosis. Results & Data Laboratory Results 04/25/18 04/25/18 04/25/18 Range/Units 11:55 10:35 10:35 WBC (4.8-10.8) K/uL RBC (4.7-6.1) M/uL Hgb (14.0-18.0) g/dL Hct (42-52) % MCV (80-100) fL MCH (25-34) pg MCHC (32-36) g/dL RDW Std Deviation (36.4-46.3) fL RDW Coeff of Shyam (11.5-14.5) % Plt Count (130-400) K/uL MPV (7.4-10.4) fL Immature Gran % (Auto) % Neut % (Auto) % Lymph % (Auto) % [place] % (Auto) % Eos % (Auto) % Baso % (Auto) % Immature Gran # (Auto) (0.00-0.02) K/uL Neut # (Auto) (1.4-6.5) K/uL Lymph # (Auto) (1.2-3.4) K/uL [place] # (Auto) (0.11-0.59) K/uL Eos # (Auto) (0-0.5) K/uL Baso # (Auto) (0-0.2) K/uL PT (9.0-12.0) Seconds INR (0.9-1.1) APTT (21.0-31.0) Seconds PTT Ratio Sodium (136-145) mmol/L Potassium (3.5-5.1) mmol/L Chloride (98-107) mmol/L Carbon Dioxide (21-32) mmol/L Anion Gap (3-11) BUN (7-18) mg/dl Creatinine (0.6-1.4) mg/dl Est Cr Clr Drug Dosing ml/min Est GFR ( Amer) Est GFR (Non-Af Amer) BUN/Creatinine Ratio (10-20) Glucose (70-99) mg/dl Calcium (8.5-10.1) mg/dl Magnesium 2.0 (1.8-2.4) mg/dl Total Bilirubin (0.2-1) mg/dl AST (15-37) U/L ALT (12-78) U/L Alkaline Phosphatase (45-117) U/L Total Creatine Kinase (39-308) U/L CK-MB (CK-2) (0.5-3.6) ng/ml CK/CKMB % Calc (0-3.0) Troponin I (0-0.045) ng/ml Total Protein (6.4-8.2) gm/dl Albumin (3.4-5.0) gm/dl Globulin (2.5-4.0) gm/dl Albumin/Globulin Ratio (0.9-2) Triglycerides 130 Cancelled Cholesterol 145 Cancelled LDL Cholesterol, Calc 78 Cancelled VLDL Cholesterol, Calc 26 Cancelled HDL Cholesterol 41 Cancelled Cholesterol/HDL Ratio 4 Cancelled Lipase (73-393) U/L Nasal Screen MRSA (PCR) Pending 04/25/18 04/25/18 04/25/18 Range/Units 10:35 10:35 10:35 WBC 12.70 H (4.8-10.8) K/uL RBC 4.60 L (4.7-6.1) M/uL Hgb 14.1 (14.0-18.0) g/dL Hct 42.3 (42-52) % MCV 92.0 (80-100) fL MCH 30.7 (25-34) pg MCHC 33.3 (32-36) g/dL RDW Std Deviation 43.8 (36.4-46.3) fL RDW Coeff of Shyam 13.1 (11.5-14.5) % Plt Count 248 (130-400) K/uL MPV 11.2 H (7.4-10.4) fL Immature Gran % (Auto) 0.3 % Neut % (Auto) 77.6 % Lymph % (Auto) 13.3 % [place] % (Auto) 8.0 % Eos % (Auto) 0.6 % Baso % (Auto) 0.2 % Immature Gran # (Auto) 0.04 H (0.00-0.02) K/uL Neut # (Auto) 9.86 H (1.4-6.5) K/uL Lymph # (Auto) 1.69 (1.2-3.4) K/uL [place] # (Auto) 1.01 H (0.11-0.59) K/uL Eos # (Auto) 0.07 (0-0.5) K/uL Baso # (Auto) 0.03 (0-0.2) K/uL PT 11.1 (9.0-12.0) Seconds INR 1.1 (0.9-1.1) APTT 98.2 H* (21.0-31.0) Seconds PTT Ratio 3.8 Sodium 138 (136-145) mmol/L Potassium 4.1 (3.5-5.1) mmol/L Chloride 109 H (98-107) mmol/L Carbon Dioxide 21 (21-32) mmol/L Anion Gap 8.0 (3-11) BUN 25 H (7-18) mg/dl Creatinine 1.21 (0.6-1.4) mg/dl Est Cr Clr Drug Dosing 67.0 ml/min Est GFR ( Amer) 65.6 Est GFR (Non-Af Amer) 56.6 BUN/Creatinine Ratio 20.6 H (10-20) Glucose 187 H (70-99) mg/dl Calcium 8.3 L (8.5-10.1) mg/dl Magnesium (1.8-2.4) mg/dl Total Bilirubin 0.6 (0.2-1) mg/dl AST 33 (15-37) U/L ALT 44 (12-78) U/L Alkaline Phosphatase 55 (45-117) U/L Total Creatine Kinase 219 (39-308) U/L CK-MB (CK-2) 4.3 H (0.5-3.6) ng/ml CK/CKMB % Calc 2.0 (0-3.0) Troponin I 0.110 H* (0-0.045) ng/ml Total Protein 6.8 (6.4-8.2) gm/dl Albumin 3.0 L (3.4-5.0) gm/dl Globulin 3.8 (2.5-4.0) gm/dl Albumin/Globulin Ratio 0.8 L (0.9-2) Triglycerides Cholesterol LDL Cholesterol, Calc VLDL Cholesterol, Calc HDL Cholesterol Cholesterol/HDL Ratio Lipase 126 (73-393) U/L Nasal Screen MRSA (PCR) Diagnostic Findings At the time of this dictation the patient's EKG was unavailable for review
--- NOTE | 2018-04-25 14:50 | Cardiology Consultation ---
Date of Consultation April 25, 2018 Assessment & Plan (1) Acute IA, true posterior wall: Complete post cardiac catheterization femoral arterial recovery protocol. Medical management: Aspirin 81 mg daily, discontinue home clopidogrel in favor of Brilinta 90 mg twice daily. Start metoprolol tartrate and titrate as tolerated. Continue prior to hospital dose of lisinopril 10 mg by mouth daily, next dose due tomorrow, 04/26/18. Patient was on atorvastatin 40 mg daily at baseline with reasonably well- controlled LDL cholesterol by laboratory study, however given his diffuse atherosclerotic disease will increase to 80 mg daily for secondary prevention of IA. Echocardiogram has been requested, will hold off on completing this until tomorrow so the patient will be able to roll which will allow for better visualization from a technical standpoint. (2) HTN (hypertension): Proceed with treatment with metoprolol and lisinopril. (3) Dyslipidemia: Atorvastatin 80 mg by mouth daily. History of Present Illness Attending Physician: Alfredo Bundy, History of Present Illness Tracey Armstrong is a 77-year-old male seen in cardiology consultation per the request of Dr. Kim of interventional cardiology to assume general cardiology care with the patient having had an emergent cardiac catheterization today for an acute myocardial infarction. The patient was apparently in his normal state of health this morning. Just before 9 AM he was shoveling snow at his residence in [place] and had onset of acute chest discomfort. EMS was summoned and initial EKG performed by EMS on 04/25/18 at 9:[address] segment depression in lead II as well as somewhat diffuse ST depression in leads V2 to V6 and subtle J-point elevation in lead III. There is also ST segment depression in leads I and aVL, and ST elevation in lead aVR. Due to concerns the patient was having an acute posterior wall myocardial infarction. EMS contacted medical command and the decision was made to transfer the patient by ground directly to the [facility] for further treatment. The"Heart Alert" protocol was therefore activated with the patient still 45 minutes away from the hospital. Upon arrival he was assessed by Dr. Kim was taken to the cardiac catheterization laboratory from the emergency room in an emergent fashion. Access was attempted via the right radial artery was unsuccessful and the patient ultimately underwent cardiac catheterization via right femoral arterial access. The patient was found to have a culprit proximal to mid circumflex coronary lesion and underwent percutaneous coronary intervention and placement of a 3.0 x 28 mm Xience Any drug-eluting stent at 10:41 AM. The patient was found to have an intermediate mid LAD lesion for which initial medical management is recommended. He was also found to have a diffusely diseased right coronary artery with diffuse high-grade stenosis starting from the ostial portion of the RCA, with noted left to right collaterals to the distal RCA territory. The patient had already been on chronic aspirin and clopidogrel medication due to his history of peripheral arterial disease and cerebrovascular disease. He therefore received a loading dose of Brilinta in the cardiac [employer] [facility] [employer]. He has been hypertensive in the [employer] and received a dose of IV labetalol, and his pressures have improved. The patient was assessed by the undersigned in ICU room 104. He was supine, recovering from right femoral arterial access was comfortable with absolutely no additional anginal complaints. Follow-up EKG on arrival to the ICU at 12 noon revealed improvement in the previously noted diffuse ST changes. PAST MEDICAL / SURGICAL HISTORY: 1. Long-standing history of type 2 diabetes mellitus apparently managed with diet with most recent hemoglobin A1c in November 2017 of 6.4%. 2. Hypertension 3. Dyslipidemia 4. Cerebrovascular disease with right carotid endarterectomy in [address] Roque with stroke predating surgery 5. History of peripheral arterial disease underwent left common iliac stent, left superficial femoral artery stent, left [id number] popliteal artery stent, Dr. Mercer, [facility] vascular surgery, 01/11/16. His recent vascular surgery follow-up had been in 2017. 6. Patient is not previously followed with cardiology, there is a resting outpatient transthoracic echocardiogram in his outpatient chart dated 06/14/2014 at which time the ejection fraction was calculated to be 64%. Mild concentric left ventricular hypertrophy was present. The left ventricular wall motion was normal without regional wall motion abnormalities. Mild aortic valve calcification without aortic stenosis was noted. 7. Past remote cigarette smoking FAMILY HISTORY: Per the patient's outpatient chart his father in his 70s with history of a "heart disorder "details unknown SOCIAL HISTORY: Former smoker, 1 pack/day, quit in 1959, 10 pack years Allergies Allergy/AdvReac Type Severity Reaction Status Date / Time No Known Allergies Allergy Unverified 04/25/18 10:20 Home Medications Home Medications Medication Instructions Recorded Confirmed Type atorvastatin 40 mg PO DAILY 04/25/18 04/25/18 History clopidogrel 75 mg PO DAILY 04/25/18 04/25/18 History levothyroxine 175 mcg PO DAILY 04/25/18 04/25/18 History lisinopril 10 mg PO DAILY 04/25/18 04/25/18 History Patient History Medical History Chronic kidney disease, stage III (moderate) Diet-controlled type 2 diabetes mellitus Displacement of lumbar intervertebral disc without myelopathy Dyslipidemia History of TIA (transient ischemic attack) History of skin cancer Hypertension Hypothyroidism No significant past medical history Peripheral vascular disease Psoriasis vulgaris Sensorineural hearing loss of combined sites Surgical History Status post carotid endarterectomy Family History Other Family history non-contributory Social History marital status: Current Living Situation: Spouse Feels Safe at Home: Yes Safety Concerns: Feels Safe At This Time Smoking Status: Former smoker Hx Alcohol Use: No Hx Substance Use: No Beliefs That Will Affect Care: None Preferred Language: Swedish Communication Ability: Effective Review of Systems 10 point review of systems is reviewed and is negative with the exception of that above Physical Exam 2 Vital Signs (Past 24 Hours): Last Vital Signs Temp 36.6 C 04/25/18 12:13 Pulse 60 04/25/18 12:45 Resp 18 04/25/18 12:45 BP 141/67 H 04/25/18 12:45 Pulse Ox 97 04/25/18 12:45
[2018-04-25] MEDS: ATORVASTATIN 40 MG TAB PO SCH (17:21)
[2018-04-25] MEDS ORDERED: ALUMINUM/MAGNESIUM SUSP 30 ML UDC PO PRN (18:18)
[2018-04-25] MEDS: METOPROLOL TARTRATE 25 MG TAB PO SCH (20:01)
[2018-04-25] MEDS: TICAGRELOR 90 MG TAB PO SCH (20:09)
[2018-04-26 05:04] LABS: Basophils # (auto) 0.04 K/uL (0-0.2); Basophils % (auto) 0.3 %; Eosinophils # (auto) 0.27 K/uL (0-0.5); Eosinophils % (auto) 1.8 %; Hematocrit (blood only) 40.2 % (42-52); Hemoglobin 13.5 g/dL (14.0-18.0); Immature Granulocytes # (auto) 0.04 K/uL (0.00-0.02); Immature Granulocytes % (auto) 0.3 %; Lymphocytes # (auto) 1.54 K/uL (1.2-3.4); Lymphocytes % (auto) 10.4 %; Mean Corpuscular Hgb Conc 33.6 g/dL (32-36); Mean Corpuscular Volume 93.9 fL (80-100); Mean Platelet Volume 11.1 fL (7.4-10.4); Monocytes # (auto) 1.78 K/uL (0.11-0.59); Neutrophils # (auto) 11.17 K/uL (1.4-6.5); Neutrophils % (auto) 75.2 %; Platelet Count 237 K/uL (130-400); RDW Coefficient of Variation 13.2 % (11.5-14.5); RDW Standard Deviation 45.1 fL (36.4-46.3); Red Blood Count 4.28 M/uL (4.7-6.1); White Blood Count 14.84 K/uL (4.8-10.8)
--- NOTE | 2018-04-26 06:12 | Critical Care Progress Note ---
Date of Service April 26, 2018 Assessment & Plan (1) Acute [place], true posterior wall: Continue Brilinta per cardiology Continue aspirin 81 mg p.o. daily Start Lopressor 25 mg p.o. twice daily Echocardiogram pending (2) Chronic kidney disease, stage III (moderate): Normal saline 75 mils per hour (3) Hypothyroidism: Continue outpatient supplemental thyroid (4) Hypertension: Continue lisinopril 5 mg p.o. daily Monitor on telemetry (5) Dyslipidemia: High intensity statin (6) Diet-controlled type 2 diabetes mellitus: Outpatient hemoglobin A1c November 2017 was 6.4 (7) History of TIA (transient ischemic attack): Brilinta and aspirin (8) DVT prophylaxis: Lovenox 40 mg daily Supervising Physician Co-Signing Physician Notes No active critical care as she is stable for downgrade out of ICU to telemetry status Subjective Overnight frequent PVCs, 6 beat run of ventricular tachycardia, patient does not complain of chest pain feels improved. Tolerated up out of bed this morning Physical Exam 2 Vital Signs (Past 24 Hours): Last Vital Signs Temp 36.9 C 04/26/18 04:00 Pulse 62 04/26/18 05:00 Resp 20 04/26/18 05:00 BP 142/71 H 04/26/18 05:00 Pulse Ox 94 04/26/18 05:00 General: Alert. nontoxic. Skin: Warm, dry, Head: Atraumatic Ears, nose, mouth and throat: airway patent Cardiovascular: Normal peripheral perfusion Respiratory: no respiratory distress Gastrointestinal: Non distended Musculoskeletal: No deformity Results & Data Laboratory Results 04/26/18 04/26/18 04/26/18 Range/Units 06:02 04:17 04:17 WBC 14.84 H (4.8-10.8) K/uL RBC 4.28 L (4.7-6.1) M/uL Hgb 13.5 L (14.0-18.0) g/dL Hct 40.2 L (42-52) % MCV 93.9 (80-100) fL MCH 31.5 (25-34) pg MCHC 33.6 (32-36) g/dL RDW Std Deviation 45.1 (36.4-46.3) fL RDW Coeff of Shyam 13.2 (11.5-14.5) % Plt Count 237 (130-400) K/uL MPV 11.1 H (7.4-10.4) fL Immature Gran % (Auto) 0.3 % Neut % (Auto) 75.2 % Lymph % (Auto) 10.4 % Karnes % (Auto) 12.0 % Eos % (Auto) 1.8 % Baso % (Auto) 0.3 % Immature Gran # (Auto) 0.04 H (0.00-0.02) K/uL Neut # (Auto) 11.17 H (1.4-6.5) K/uL Lymph # (Auto) 1.54 (1.2-3.4) K/uL Karnes # (Auto) 1.78 H (0.11-0.59) K/uL Eos # (Auto) 0.27 (0-0.5) K/uL Baso # (Auto) 0.04 (0-0.2) K/uL PT (9.0-12.0) Seconds INR (0.9-1.1) APTT (21.0-31.0) Seconds PTT Ratio Sodium (136-145) mmol/L Potassium (3.5-5.1) mmol/L Chloride (98-107) mmol/L Carbon Dioxide (21-32) mmol/L Anion Gap (3-11) BUN (7-18) mg/dl Creatinine (0.6-1.4) mg/dl Est Cr Clr Drug Dosing ml/min Est GFR ( Amer) Est GFR (Non-Af Amer) BUN/Creatinine Ratio (10-20) Glucose (70-99) mg/dl POC Glucose 170 H (70-99) Calcium (8.5-10.1) mg/dl Magnesium (1.8-2.4) mg/dl Total Bilirubin (0.2-1) mg/dl AST (15-37) U/L ALT (12-78) U/L Alkaline Phosphatase (45-117) U/L Total Creatine Kinase (39-308) U/L CK-MB (CK-2) (0.5-3.6) ng/ml CK/CKMB % Calc (0-3.0) Troponin I 4.830 H* (0-0.045) ng/ml Total Protein (6.4-8.2) gm/dl Albumin (3.4-5.0) gm/dl Globulin (2.5-4.0) gm/dl Albumin/Globulin Ratio (0.9-2) Triglycerides Cholesterol LDL Cholesterol, Calc VLDL Cholesterol, Calc HDL Cholesterol Cholesterol/HDL Ratio Lipase (73-393) U/L Nasal Screen MRSA (PCR) (Negative) 04/25/18 04/25/18 04/25/18 Range/Units 20:04 17:57 16:41 WBC (4.8-10.8) K/uL RBC (4.7-6.1) M/uL Hgb (14.0-18.0) g/dL Hct (42-52) % MCV (80-100) fL MCH (25-34) pg MCHC (32-36) g/dL RDW Std Deviation (36.4-46.3) fL RDW Coeff of Shyam (11.5-14.5) % Plt Count (130-400) K/uL MPV (7.4-10.4) fL Immature Gran % (Auto) % Neut % (Auto) % Lymph % (Auto) % Karnes % (Auto) % Eos % (Auto) % Baso % (Auto) % Immature Gran # (Auto) (0.00-0.02) K/uL Neut # (Auto) (1.4-6.5) K/uL Lymph # (Auto) (1.2-3.4) K/uL Karnes # (Auto) (0.11-0.59) K/uL Eos # (Auto) (0-0.5) K/uL Baso # (Auto) (0-0.2) K/uL PT (9.0-12.0) Seconds INR (0.9-1.1) APTT (21.0-31.0) Seconds PTT Ratio Sodium (136-145) mmol/L Potassium (3.5-5.1) mmol/L Chloride (98-107) mmol/L Carbon Dioxide (21-32) mmol/L Anion Gap (3-11) BUN (7-18) mg/dl Creatinine (0.6-1.4) mg/dl Est Cr Clr Drug Dosing ml/min Est GFR ( Amer) Est GFR (Non-Af Amer) BUN/Creatinine Ratio (10-20) Glucose (70-99) mg/dl POC Glucose 149 H 118 H (70-99) Calcium (8.5-10.1) mg/dl Magnesium (1.8-2.4) mg/dl Total Bilirubin (0.2-1) mg/dl AST (15-37) U/L ALT (12-78) U/L Alkaline Phosphatase (45-117) U/L Total Creatine Kinase (39-308) U/L CK-MB (CK-2) (0.5-3.6) ng/ml CK/CKMB % Calc (0-3.0) Troponin I 4.720 H* (0-0.045) ng/ml Total Protein (6.4-8.2) gm/dl Albumin (3.4-5.0) gm/dl Globulin (2.5-4.0) gm/dl Albumin/Globulin Ratio (0.9-2) Triglycerides Cholesterol LDL Cholesterol, Calc VLDL Cholesterol, Calc HDL Cholesterol Cholesterol/HDL Ratio Lipase (73-393) U/L Nasal Screen MRSA (PCR) (Negative) 04/25/18 04/25/18 04/25/18 Range/Units 11:55 10:35 10:35 WBC (4.8-10.8) K/uL RBC (4.7-6.1) M/uL Hgb (14.0-18.0) g/dL Hct (42-52) % MCV (80-100) fL MCH (25-34) pg MCHC (32-36) g/dL RDW Std Deviation (36.4-46.3) fL RDW Coeff of Shyam (11.5-14.5) % Plt Count (130-400) K/uL MPV (7.4-10.4) fL Immature Gran % (Auto) % Neut % (Auto) % Lymph % (Auto) % Karnes % (Auto) % Eos % (Auto) % Baso % (Auto) % Immature Gran # (Auto) (0.00-0.02) K/uL Neut # (Auto) (1.4-6.5) K/uL Lymph # (Auto) (1.2-3.4) K/uL Karnes # (Auto) (0.11-0.59) K/uL Eos # (Auto) (0-0.5) K/uL Baso # (Auto) (0-0.2) K/uL PT (9.0-12.0) Seconds INR (0.9-1.1) APTT (21.0-31.0) Seconds PTT Ratio Sodium (136-145) mmol/L Potassium (3.5-5.1) mmol/L Chloride (98-107) mmol/L Carbon Dioxide (21-32) mmol/L Anion Gap (3-11) BUN (7-18) mg/dl Creatinine (0.6-1.4) mg/dl Est Cr Clr Drug Dosing ml/min Est GFR ( Amer) Est GFR (Non-Af Amer) BUN/Creatinine Ratio (10-20) Glucose (70-99) mg/dl POC Glucose (70-99) Calcium (8.5-10.1) mg/dl Magnesium 2.0 (1.8-2.4) mg/dl Total Bilirubin (0.2-1) mg/dl AST (15-37) U/L ALT (12-78) U/L Alkaline Phosphatase (45-117) U/L Total Creatine Kinase (39-308) U/L CK-MB (CK-2) (0.5-3.6) ng/ml CK/CKMB % Calc (0-3.0) Troponin I (0-0.045) ng/ml Total Protein (6.4-8.2) gm/dl Albumin (3.4-5.0) gm/dl Globulin (2.5-4.0) gm/dl Albumin/Globulin Ratio (0.9-2) Triglycerides 130 Cancelled Cholesterol 145 Cancelled LDL Cholesterol, Calc 78 Cancelled VLDL Cholesterol, Calc 26 Cancelled HDL Cholesterol 41 Cancelled Cholesterol/HDL Ratio 4 Cancelled Lipase (73-393) U/L Nasal Screen MRSA (PCR) Negative (Negative) 04/25/18 04/25/18 04/25/18 Range/Units 10:35 10:35 10:35 WBC 12.70 H (4.8-10.8) K/uL RBC 4.60 L (4.7-6.1) M/uL Hgb 14.1 (14.0-18.0) g/dL Hct 42.3 (42-52) % MCV 92.0 (80-100) fL MCH 30.7 (25-34) pg MCHC 33.3 (32-36) g/dL RDW Std Deviation 43.8 (36.4-46.3) fL RDW Coeff of Shyam 13.1 (11.5-14.5) % Plt Count 248 (130-400) K/uL MPV 11.2 H (7.4-10.4) fL Immature Gran % (Auto) 0.3 % Neut % (Auto) 77.6 % Lymph % (Auto) 13.3 % Karnes % (Auto) 8.0 % Eos % (Auto) 0.6 % Baso % (Auto) 0.2 % Immature Gran # (Auto) 0.04 H (0.00-0.02) K/uL Neut # (Auto) 9.86 H (1.4-6.5) K/uL Lymph # (Auto) 1.69 (1.2-3.4) K/uL Karnes # (Auto) 1.01 H (0.11-0.59) K/uL Eos # (Auto) 0.07 (0-0.5) K/uL Baso # (Auto) 0.03 (0-0.2) K/uL PT 11.1 (9.0-12.0) Seconds INR 1.1 (0.9-1.1) APTT 98.2 H* (21.0-31.0) Seconds PTT Ratio 3.8 Sodium 138 (136-145) mmol/L Potassium 4.1 (3.5-5.1) mmol/L Chloride 109 H (98-107) mmol/L Carbon Dioxide 21 (21-32) mmol/L Anion Gap 8.0 (3-11) BUN 25 H (7-18) mg/dl Creatinine 1.21 (0.6-1.4) mg/dl Est Cr Clr Drug Dosing 67.0 ml/min Est GFR ( Amer) 65.6 Est GFR (Non-Af Amer) 56.6 BUN/Creatinine Ratio 20.6 H (10-20) Glucose 187 H (70-99) mg/dl POC Glucose (70-99) Calcium 8.3 L (8.5-10.1) mg/dl Magnesium (1.8-2.4) mg/dl Total Bilirubin 0.6 (0.2-1) mg/dl AST 33 (15-37) U/L ALT 44 (12-78) U/L Alkaline Phosphatase 55 (45-117) U/L Total Creatine Kinase 219 (39-308) U/L CK-MB (CK-2) 4.3 H (0.5-3.6) ng/ml CK/CKMB % Calc 2.0 (0-3.0) Troponin I 0.110 H* (0-0.045) ng/ml Total Protein 6.8 (6.4-8.2) gm/dl Albumin 3.0 L (3.4-5.0) gm/dl Globulin 3.8 (2.5-4.0) gm/dl Albumin/Globulin Ratio 0.8 L (0.9-2) Triglycerides Cholesterol LDL Cholesterol, Calc VLDL Cholesterol, Calc HDL Cholesterol Cholesterol/HDL Ratio Lipase 126 (73-393) U/L Nasal Screen MRSA (PCR) (Negative) ECG Additional Comments: EKG: Normal sinus rhythm rate of [address] segment abnormality normal axis QTC 460 no comparison to prior abnormal EKG.
--- NOTE | 2018-04-26 08:07 | Operative Report ---
DATE OF OPERATION: 04/25/2018 PORT-A-CATH AND PCI INDICATIONS: Acute posterior IL in a 77-year-old hypertensive, diabetic, hypercholesterolemic male with ST depression of greater than 1 mm in V1, V2, V3, T-wave inversions in I and aVL by prehospital EKG with no presenting signs of congestive heart failure or arrhythmia. PROCEDURE PERFORMED: Left heart catheterization, coronary cineangiography, PCI with drug-eluting stent x1 ostial and proximal circumflex, radiological interpretation and supervision. METHOD: Upon arrival in the rn cardiac cath, the patient was prepped and draped in usual sterile fashion. After local infiltration of 2% lidocaine, a 6-Zimbabwean sheath was placed in the right femoral artery. Intravenous heparin was administered and titrated by repeated ACTs in the rn cardiac cath. A 6-Zimbabwean EBU 3.5 guiding catheter was advanced over wire under fluoroscopic guidance to the central circulation where it was aspirated and flushed. After confirmation of adequate waveforms, it was advanced into the left main. Cineangiograms of the left circumflex were obtained and reviewed. A 0.014-inch Ebay Reseller wire was advanced through the guiding catheter across the area of stenosis in the apical circumflex posterolateral branch. A 2.0 Mini Trek 15 angioplasty catheter positioned in multiple locations in the proximal and ostial circumflex artery. A 3.0 Xience 23 stent was positioned in the ostial and proximal circumflex and inflated to maximum pressure for less than a minute and the balloon was withdrawn. Proximal and mid portions of the stented segment were postdilated using a 3.5 compliant 15 mm balloon to maximum pressure for less than 1 minute on multiple occasions. Final cineangiograms were obtained and the wire was removed from the coronary artery. Guiding catheter was removed from the left main under fluoroscopic guidance, sheath was aspirated and flushed. A 6-Zimbabwean AR2 guiding catheter was advanced over wire under fluoroscopic guidance to the central circulation where it was aspirated and flushed. After confirmation of adequate waveforms, it was advanced into the right coronary artery. Cineangiograms of the right coronary artery were obtained and reviewed. The catheter was removed from the body over wire, the sheath was aspirated and flushed. A 6-Zimbabwean angled tip pigtail catheter was advanced across the aortic valve in retrograde fashion. Left ventricular end diastolic pressure was measured. The catheter was removed from the left ventricle to the aorta under continuous pressure monitoring and removed from the body over wire. The sheath was aspirated and flushed. A QuikClot was applied over the right femoral arteriotomy and manual compression was held and adequate hemostasis. The patient returned to his room in good condition. COMPLICATIONS: None. FINDINGS: Left main is normal. Left anterior descending artery is moderate in caliber, moderately calcified in its proximal segment with an 80% stenosis present immediately distal to the first diagonal branch. Left circumflex is moderate in caliber with a proximal, not ostial, subtotal occlusion. Remainder of the circumflex, circumflex posterolateral branches are free of significant disease. Right coronary artery is moderately calcified with an ostial and proximal lengthy subtotal occlusion, a mid to distal 99% stenosis with patent PDA, patent posterolateral branches arising from the posterior AV extension of the right coronary artery and moderate left to right collateral filling via the reperfused circumflex. Left ventricular end diastolic pressure was normal. No significant aortic valve gradient is demonstrated. Final cineangiograms demonstrated no residual stenosis, no uncovered dissection, JOÃO grade 3 flow in the circumflex, circumflex posterolateral branches collateralizing the right coronary artery. IMPRESSION: Successful angioplasty drug-eluting stent placement to proximal circumflex stenosis in the face of acute posterolateral myocardial infarction. RECOMMENDATIONS: 1. Medical therapy post-IL following evaluation of LV function by echocardiogram. 2. Consider staged procedure for attention to right coronary artery and LAD stenoses as symptoms may warrant. I attest to the content of the Intraoperative Record and any orders documented therein. Any exceptions are noted below. CHELA
[2018-04-26] MEDS: TICAGRELOR 90 MG TAB PO SCH ×2 (08:14→20:24)
[2018-04-26] MEDS: ATORVASTATIN 40 MG TAB PO SCH (08:14)
[2018-04-26] MEDS: ENOXAPARIN INJ 40 MG/0.4 ML SYR SQ SCH (08:14)
[2018-04-26] MEDS: METOPROLOL TARTRATE 25 MG TAB PO SCH ×2 (08:14→20:24)
[2018-04-26] MEDS: LISINOPRIL 10 MG TAB PO SCH (08:14)
[2018-04-26] MEDS: ASPIRIN 81 MG ECTAB PO SCH (08:14)
[2018-04-26] MEDS ORDERED: PHARMACY GLYCEMIC MGMT CONSULT SCH (08:44)
[2018-04-26] MEDS ORDERED: CARBOHYDRATES FOR HYPOGLYCEMIA PO PRN (08:45)
[2018-04-26] MEDS ORDERED: GLUCOSE 10 TABS/TUBE PO PRN (08:45)
[2018-04-26] MEDS ORDERED: GLUCAGON FOR INJ 1 MG VIAL SQ PRN (08:45)
[2018-04-26] MEDS ORDERED: DEXTROSE 50% 50 ML SYRINGE IV PRN (08:45)
[2018-04-26] MEDS ORDERED: GLUCOSE 40% GEL 15 GM TUBE PO PRN (08:45)
[2018-04-26] MEDS ORDERED: ATORVASTATIN 40 MG TAB PO SCH (09:00)
--- NOTE | 2018-04-26 09:16 | Pharmacy Report ---
Pharmacy Glycemic Short Note 2 - Date of Service April 26, 2018 - Glycemic Short BSG Results (Last 24 hours): 04/25/18 04/25/18 04/25/18 10:35 16:41 20:04 Glucose 187 H POC Glucose 118 H 149 H 04/26/18 06:02 Glucose POC Glucose 170 H OUTPATIENT ANTIDIABETIC REGIMEN: * diet controlled * A1c = ? ASSESSMENT: 04/26/18 * Type 2 diabetic admitted for CP, SOB, acute posterior MD. He is now s/p HARLEEN x 1 to LCX * Level of control with diet alone uncertain - will add A1c * BSGs have ranged 118-187 since admission. * Fasting BSG 170 this AM, which is elevated. Will add basal insulin if A1c shows poor control w/ diet alone * Novolog correction at a minimum should be ordered for this patient. Will begin conservative prandial insulin as well based upon weight. PLAN FOR INPATIENT GLYCEMIC CONTROL: * Basal insulin * None at this time - reevaluate based upon A1c and fasting BSG trends * Bolus insulin * NovoLog per scale ACHS or Q6hrs while NPO * Goal Range: Low 110 mg/dL - High 140 mg/dL * Correction Factor: 25 mg/dL/unit * Nutritional / Prandial insulin per carb ratio of 1 unit per 15 grams CHO consumed PLAN FOR DISCHARGE: * to be determined
[2018-04-26] MEDS ORDERED: MAGNESIUM HYDROXIDE SUSP 30 ML UDC PO PRN (10:32)
--- NOTE | 2018-04-26 10:32 | Hospitalist Progress Note ---
Date of Service April 26, 2018 Assessment & Plan (1) Acute [place], true posterior wall: s/p Stent Placement 04/26/18 stable overall echo with preserved EF as per Dr. Davison continue: ASA, Brilinta, Metoprolol, Lipitor may need repeat Cardiac Cath to address LAD may transfer to Tele (2) Chronic kidney disease, stage III (moderate): Creatinine is 1.21 with a BUN of 25 PRP pending (3) Hypothyroidism: Check a TSH Continue levothyroxine 175 micrograms p.o. daily (4) Hypertension: Continue lisinopril 5 mg p.o. daily Monitor on telemetry (5) Dyslipidemia: Atorvastatin 40 mg p.o. daily (6) Diet-controlled type 2 diabetes mellitus: Outpatient hemoglobin A1c November 2017 was 6.4 - A1c pending Pharmacy glycemic control consulted (7) History of TIA (transient ischemic attack): Currently takes clopidogrel 75 mg p.o. daily and aspirin 81 mg p.o. daily - Plavix changed to Brillinta (8) DVT prophylaxis: Lovenox Disposition pending will need PT/OT lives with family at home Subjective ff up for acute [place] s/p stent seen resting inbed, comfortable chest pain free, no dysnea/dizziness/palpitations sat in the chair today with no problems no bleeding indigestion resolved no other symptoms Physical Exam 2 Vital Signs (Past 24 Hours): Last Vital Signs Temp 36.7 C 04/26/18 08:00 Pulse 65 04/26/18 09:00 Resp 22 04/26/18 09:00 BP 145/67 H 04/26/18 09:00 Pulse Ox 98 04/26/18 09:00 Physical Exam: General- oriented x 3, not in distress, speaks in sentences with no effort or accessory muscle use Eyes- anicteric Neck- no JVD Lungs- clear breath sounds bilaterally, no rales/wheezes Heart- normal rate, regular rhythm; no murmurs Abdomen- normal bowel sounds, nondistended, soft, nontender Extremities- no pretibial edema, no calf tenderness Neuro- alert, oriented x 3; no gross focal neurologic deficits Skin- warm & dry Results & Data Laboratory Results Laboratory Results - last 24 hr 04/25/18 04/25/18 04/25/18 10:35 10:35 10:35 WBC 12.70 H RBC 4.60 L Hgb 14.1 Hct 42.3 MCV 92.0 MCH 30.7 MCHC 33.3 RDW Std Deviation 43.8 RDW Coeff of Shyam 13.1 Plt Count 248 MPV 11.2 H Immature Gran % (Auto) 0.3 Neut % (Auto) 77.6 Lymph % (Auto) 13.3 Maury % (Auto) 8.0 Eos % (Auto) 0.6 Baso % (Auto) 0.2 Immature Gran # (Auto) 0.04 H Neut # (Auto) 9.86 H Lymph # (Auto) 1.69 Maury # (Auto) 1.01 H Eos # (Auto) 0.07 Baso # (Auto) 0.03 PT 11.1 INR 1.1 APTT 98.2 H* PTT Ratio 3.8 Activ Coag Time Kaolin Sodium 138 Potassium 4.1 Chloride 109 H Carbon Dioxide 21 Anion Gap 8.0 BUN 25 H Creatinine 1.21 Est Cr Clr Drug Dosing 67.0 Est GFR ( Amer) 65.6 Est GFR (Non-Af Amer) 56.6 BUN/Creatinine Ratio 20.6 H Glucose 187 H POC Glucose Calcium 8.3 L Magnesium Total Bilirubin 0.6 AST 33 ALT 44 Alkaline Phosphatase 55 Total Creatine Kinase 219 CK-MB (CK-2) 4.3 H CK/CKMB % Calc 2.0 Troponin I 0.110 H* Total Protein 6.8 Albumin 3.0 L Globulin 3.8 Albumin/Globulin Ratio 0.8 L Triglycerides Cholesterol LDL Cholesterol, Calc VLDL Cholesterol, Calc HDL Cholesterol Cholesterol/HDL Ratio Lipase 126 Nasal Screen MRSA (PCR) 04/25/18 04/25/18 04/25/18 10:35 10:35 10:38 WBC RBC Hgb Hct MCV MCH MCHC RDW Std Deviation RDW Coeff of Shyam Plt Count MPV Immature Gran % (Auto) Neut % (Auto) Lymph % (Auto) Maury % (Auto) Eos % (Auto) Baso % (Auto) Immature Gran # (Auto) Neut # (Auto) Lymph # (Auto) Maury # (Auto) Eos # (Auto) Baso # (Auto) PT INR APTT PTT Ratio Activ Coag Time Kaolin 186 H Sodium Potassium Chloride Carbon Dioxide Anion Gap BUN Creatinine Est Cr Clr Drug Dosing Est GFR ( Amer) Est GFR (Non-Af Amer) BUN/Creatinine Ratio Glucose POC Glucose Calcium Magnesium 2.0 Total Bilirubin AST ALT Alkaline Phosphatase Total Creatine Kinase CK-MB (CK-2) CK/CKMB % Calc Troponin I Total Protein Albumin Globulin Albumin/Globulin Ratio Triglycerides Cancelled 130 Cholesterol Cancelled 145 LDL Cholesterol, Calc Cancelled 78 VLDL Cholesterol, Calc Cancelled 26 HDL Cholesterol Cancelled 41 Cholesterol/HDL Ratio Cancelled 4 Lipase Nasal Screen MRSA (PCR) 04/25/18 04/25/18 04/25/18 10:58 11:18 11:55 WBC RBC Hgb Hct MCV MCH MCHC RDW Std Deviation RDW Coeff of Shyam Plt Count MPV Immature Gran % (Auto) Neut % (Auto) Lymph % (Auto) Maury % (Auto) Eos % (Auto) Baso % (Auto) Immature Gran # (Auto) Neut # (Auto) Lymph # (Auto) Maury # (Auto) Eos # (Auto) Baso # (Auto) PT INR APTT PTT Ratio Activ Coag Time Kaolin 224 H 197 H Sodium Potassium Chloride Carbon Dioxide Anion Gap BUN Creatinine Est Cr Clr Drug Dosing Est GFR ( Amer) Est GFR (Non-Af Amer) BUN/Creatinine Ratio Glucose POC Glucose Calcium Magnesium Total Bilirubin AST ALT Alkaline Phosphatase Total Creatine Kinase CK-MB (CK-2) CK/CKMB % Calc Troponin I Total Protein Albumin Globulin Albumin/Globulin Ratio Triglycerides Cholesterol LDL Cholesterol, Calc VLDL Cholesterol, Calc HDL Cholesterol Cholesterol/HDL Ratio Lipase Nasal Screen MRSA (PCR) Negative 04/25/18 04/25/18 04/25/18 16:41 17:57 20:04 WBC RBC Hgb Hct MCV MCH MCHC RDW Std Deviation RDW Coeff of Shyam Plt Count MPV Immature Gran % (Auto) Neut % (Auto) Lymph % (Auto) Maury % (Auto) Eos % (Auto) Baso % (Auto) Immature Gran # (Auto) Neut # (Auto) Lymph # (Auto) Maury # (Auto) Eos # (Auto) Baso # (Auto) PT INR APTT PTT Ratio Activ Coag Time Kaolin Sodium Potassium Chloride Carbon Dioxide Anion Gap BUN Creatinine Est Cr Clr Drug Dosing Est GFR ( Amer) Est GFR (Non-Af Amer) BUN/Creatinine Ratio Glucose POC Glucose 118 H 149 H Calcium Magnesium Total Bilirubin AST ALT Alkaline Phosphatase Total Creatine Kinase CK-MB (CK-2) CK/CKMB % Calc Troponin I 4.720 H* Total Protein Albumin Globulin Albumin/Globulin Ratio Triglycerides Cholesterol LDL Cholesterol, Calc VLDL Cholesterol, Calc HDL Cholesterol Cholesterol/HDL Ratio Lipase Nasal Screen MRSA (PCR) 04/26/18 04/26/18 04/26/18 04:17 04:17 06:02 WBC 14.84 H RBC 4.28 L Hgb 13.5 L Hct 40.2 L MCV 93.9 MCH 31.5 MCHC 33.6 RDW Std Deviation 45.1 RDW Coeff of Shyam 13.2 Plt Count 237 MPV 11.1 H Immature Gran % (Auto) 0.3 Neut % (Auto) 75.2 Lymph % (Auto) 10.4 Maury % (Auto) 12.0 Eos % (Auto) 1.8 Baso % (Auto) 0.3 Immature Gran # (Auto) 0.04 H Neut # (Auto) 11.17 H Lymph # (Auto) 1.54 Maury # (Auto) 1.78 H Eos # (Auto) 0.27 Baso # (Auto) 0.04 PT INR APTT PTT Ratio Activ Coag Time Kaolin Sodium Potassium Chloride Carbon Dioxide Anion Gap BUN Creatinine Est Cr Clr Drug Dosing Est GFR ( Amer) Est GFR (Non-Af Amer) BUN/Creatinine Ratio Glucose POC Glucose 170 H Calcium Magnesium Total Bilirubin AST ALT Alkaline Phosphatase Total Creatine Kinase CK-MB (CK-2) CK/CKMB % Calc Troponin I 4.830 H* Total Protein Albumin Globulin Albumin/Globulin Ratio Triglycerides Cholesterol LDL Cholesterol, Calc VLDL Cholesterol, Calc HDL Cholesterol Cholesterol/HDL Ratio Lipase Nasal Screen MRSA (PCR)
[2018-04-26 10:46] LABS: Estimated Average Glucose 163 mg/dl
[2018-04-26 11:06] LABS: BUN Creatinine Ratio 19.8 (10-20); Calcium 8.1 mg/dl (8.5-10.1); Creatinine Clr Calc Pharmacy 63.1 ml/min; Est GFR (African American) 63.7; Est GFR (Non-African American) 54.9; Potassium 4.2 mmol/L (3.5-5.1)
[2018-04-26] MEDS: SODIUM CHLORIDE 0.9% 1000ML 1,000 ML IV SCH (11:16)
[2018-04-26] MEDS: INSULIN ASPART 100 UNITS/ML 3 ML PEN SC SCH ×3 (11:27→21:38)
--- NOTE | 2018-04-26 15:24 | Cardiology Progress Note ---
Date of Service April 26, 2018 Assessment & Plan (1) Acute [place], true posterior wall: Patient doing well clinically. No additional angina. Continue medication treatment with aspirin 81 mg daily for the rest of his life. Continue Brilinta 90 mg p.o. twice daily, planning for a year. There is a problem with tolerance, plan to transition back to clopidogrel. In the long-term, patient will likely require dual antiplatelet therapy and after 1 year, perhaps with aspirin and clopidogrel due to his history of peripheral arterial disease, carotid disease and stroke, chronic coronary artery disease. Continue metoprolol, atorvastatin. Atorvastatin dose was increased from 40 mg to 80 mg. Patient has a residual chronic diffuse stenosis of the RCA with [id number] collaterals from circumflex, treat medically for now. There is an intermediate lesion of the LAD. This patient's hospital stay develops, will determine consideration of repeat coronary angiography for further assessment of the LAD versus consideration of outpatient low intensity/ pharmacologic nuclear stress testing for assessment of ischemic burden in the LAD and RCA territories as outpatient. Continue subcutaneous Lovenox for DVT prophylaxis. Subjective Chief complaint: Follow-up chest pain, acute myocardial infarction Subjective: Patient reassessed this morning in ICU room room 104. Feeling well. Tolerated recovery from right femoral artery arterial access well. Vital signs stable. Denies any anginal symptoms. Review of Systems All systems reviewed & are unremarkable except as noted in HPI & below Physical Exam 2 Vital Signs (Past 24 Hours): Last Vital Signs Temp 36.6 C 04/26/18 12:59 Pulse 61 04/26/18 14:46 Resp 12 04/26/18 12:59 BP 94/60 L 04/26/18 14:46 Pulse Ox 97 04/26/18 14:46 Physical Exam: General: no acute distress and stated age Eyes: conjunctiva are pink and non-injected, sclera clear Neck: normal jugular venous pulse, no hepatojugular reflux Chest: normal shape and normal respiratory effort Lungs: clear to auscultation and percussion Cardiac Exam: - regular heart sounds, no murmurs, rubs, or gallops, no jugular venous distention Abdomen: abdomen soft, non-tender, no abnormal masses and no hepatosplenomegaly Extremities: no edema and no cyanosis, attempted right radial access site clean dry and intact with no significant ecchymosis, right femoral arterial access site clean dry and intact, no hematoma Neuro:awake, coversant, follows commands, no focal motor deficits Psych: appropriate affect and insight. Results & Data Laboratory Results Troponin peaked at 4.83, down to 3.3 this morning. Cardiac Enzymes 04/25/18 04/26/18 04/26/18 Range/Units 17:57 04:17 10:12 Troponin I 4.720 H* 4.830 H* 3.300 H* (0-0.045) ng/ml CBC 04/26/18 Range/Units 04:17 WBC 14.84 H (4.8-10.8) K/uL RBC 4.28 L (4.7-6.1) M/uL Hgb 13.5 L (14.0-18.0) g/dL Hct 40.2 L (42-52) % Plt Count 237 (130-400) K/uL Neut # (Auto) 11.17 H (1.4-6.5) K/uL Lymph # (Auto) 1.54 (1.2-3.4) K/uL [place] # (Auto) 1.78 H (0.11-0.59) K/uL Eos # (Auto) 0.27 (0-0.5) K/uL Baso # (Auto) 0.04 (0-0.2) K/uL Comprehensive Metabolic Panel 04/26/18 Range/Units 10:20 Sodium 137 (136-145) mmol/L Potassium 4.2 (3.5-5.1) mmol/L Chloride 108 H (98-107) mmol/L Carbon Dioxide 24 (21-32) mmol/L BUN 25 H (7-18) mg/dl Creatinine 1.24 (0.6-1.4) mg/dl Glucose 212 H (70-99) mg/dl Calcium 8.1 L (8.5-10.1) mg/dl Intake and Output 04/26/18 04/26/18 04/26/18 06:59 14:59 22:59 Intake Total 120 / 120 2080 / 2080 Output Total 450 / 450 600 / 600 Balance -330 / -330 1480 / 1480 Intake: IV 1000 / 1000 Nss 1000ML 1,000 ml @ 75 mls/hr 1000 / 1000 IV .[id number] [facility] Rx#:[id number] Oral 120 / 120 1080 / 1080 Output: Urine 450 / 450 600 / 600 Other: Weight 111.2 kg Diagnostic Findings EKG this a.m. 04/26/18 sinus rhythm at 62 bpm, T wave inversion limited to lead III, the ST segment depression noted on the initial prehospital EKG has resolved. One PAC is noted. Echocardiogram performed this morning 04/26/18 reviewed in palate by the undersigned: There is moderate concentric left ventricular hypertrophy. There is a small sized basal inferior and posterior wall motion abnormality with akinesis of the segments. There is a moderate degree of focal calcification of the noncoronary cusp of the aortic valve. Aortic valve stenosis is absent. l mild mitral regurgitation is present. Mild tricuspid regurgitation is present. The pulmonary artery systolic pressure is To Be 35-40 MmHg, Upper Limit of Normal to Mildly Elevated. Lft ventricular systolic function is normal with qualitative left ventricular ejection fraction in the range of 55-60%.
[2018-04-26] MEDS: INSULIN GLARGINE SOLOSTAR 100 UNITS/ML 3 ML PEN SC SCH (21:38)
[2018-04-27] MEDS: LEVOTHYROXINE SODIUM 175 MCG TABLET PO SCH (05:26)
[2018-04-27 06:11] LABS: Basophils # (auto) 0.04 K/uL (0-0.2); Basophils % (auto) 0.3 %; Eosinophils # (auto) 0.74 K/uL (0-0.5); Eosinophils % (auto) 5.9 %; Hemoglobin 13.8 g/dL (14.0-18.0); Immature Granulocytes # (auto) 0.05 K/uL (0.00-0.02); Immature Granulocytes % (auto) 0.4 %; Lymphocytes # (auto) 2.42 K/uL (1.2-3.4); Lymphocytes % (auto) 19.4 %; Mean Corpuscular Hgb Conc 33.7 g/dL (32-36); Mean Corpuscular Volume 93.4 fL (80-100); Mean Platelet Volume 11.1 fL (7.4-10.4); Monocytes # (auto) 1.19 K/uL (0.11-0.59); Monocytes % (auto) 9.5 %; Neutrophils # (auto) 8.03 K/uL (1.4-6.5); Neutrophils % (auto) 64.5 %; Platelet Count 233 K/uL (130-400); RDW Coefficient of Variation 13.1 % (11.5-14.5); RDW Standard Deviation 45.1 fL (36.4-46.3); Red Blood Count 4.39 M/uL (4.7-6.1); White Blood Count 12.47 K/uL (4.8-10.8)
[2018-04-27 06:44] LABS: BUN Creatinine Ratio 20.6 (10-20); Calcium 8.1 mg/dl (8.5-10.1); Creatinine Clr Calc Pharmacy 63.1 ml/min; Est GFR (African American) 63.7; Est GFR (Non-African American) 54.9
--- NOTE | 2018-04-27 08:03 | Ultrasound Report ---
ULTRASOUND LEFT LOWER EXTREMITY VENOUS CLINICAL HISTORY: Left leg pain. COMPARISON STUDY: No priors. TECHNIQUE: Real-time, grayscale, and color Doppler sonography of the deep veins of the left lower ext remity was performed from the inguinal crease to the calf. Compression and augmentation were utilized . FINDINGS: There is no sonographic evidence of deep venous thrombosis identified in the left lower ext remity. The common femoral, superficial femoral, and popliteal veins are patent and normally compress ible. The greater saphenous vein and the profunda femoris vein at the junction with the common femora l vein are clear. The visualized calf veins are patent. IMPRESSION: There is no sonographic evidence of deep venous thrombosis identified in the left lower e xtremity. Electronically signed by: Lalo Barnes M.D. 04/27/2018 8:01 AM
[2018-04-27] MEDS: INSULIN ASPART 100 UNITS/ML 3 ML PEN SC SCH ×4 (08:28→20:20)
[2018-04-27] MEDS: ASPIRIN 81 MG ECTAB PO SCH (08:32)
[2018-04-27] MEDS: METOPROLOL TARTRATE 25 MG TAB PO SCH ×2 (08:33→20:17)
[2018-04-27] MEDS: ATORVASTATIN 40 MG TAB PO SCH (08:33)
[2018-04-27] MEDS: ENOXAPARIN INJ 40 MG/0.4 ML SYR SQ SCH (08:34)
[2018-04-27] MEDS: LISINOPRIL 10 MG TAB PO SCH (08:34)
[2018-04-27] MEDS: INSULIN GLARGINE SOLOSTAR 100 UNITS/ML 3 ML PEN SC SCH ×2 (08:54→20:21)
[2018-04-27] MEDS: TICAGRELOR 90 MG TAB PO SCH (11:06)
--- NOTE | 2018-04-27 11:06 | Pharmacy Report ---
Pharmacy Glycemic Short Note 2 - Date of Service April 27, 2018 - Glycemic Short BSG Results (Last 24 hours): 04/26/18 04/26/18 04/26/18 10:20 11:12 16:32 Glucose 212 H POC Glucose 183 H 134 H 04/26/18 04/27/18 04/27/18 20:51 05:41 07:20 Glucose 142 H POC Glucose 146 H 147 H OUTPATIENT ANTIDIABETIC REGIMEN: * diet controlled * A1c = 7.3% 04/26/18 THE PATIENT IS CURRENTLY RECEIVING: * Lantus 10 units SQ BID * * Novolog ACHS * Goal range: 110-140mg/dL * CF: 25mg/dL/unit * CR: 1 unit per 15gm CHO consumed ASSESSMENT: 04/27/18 * BSGs at target with current insulin orders - plan to continue with the same for next 24 hrs * Lantus was added yesterday in light of A1c results and FBS > 140 on PRP 04/26/18 * Type 2 diabetic admitted for CP, SOB, acute posterior NE. He is now s/p HARLEEN x 1 to LCX * Level of control with diet alone uncertain - will add A1c * BSGs have ranged 118-187 since admission. * Fasting BSG 170 this AM, which is elevated. Will add basal insulin if A1c shows poor control w/ diet alone * Novolog correction at a minimum should be ordered for this patient. Will begin conservative prandial insulin as well based upon weight. PLAN FOR INPATIENT GLYCEMIC CONTROL: * Basal insulin * Lantus 10 units BID * Bolus insulin * NovoLog per scale ACHS or Q6hrs while NPO * Goal Range: Low 110 mg/dL - High 140 mg/dL * Correction Factor: 25 mg/dL/unit * Nutritional / Prandial insulin per carb ratio of 1 unit per 15 grams CHO consumed PLAN FOR DISCHARGE: * Might consider addition of metformin on discharge in addition to dietary/ lifestyle modifications
--- NOTE | 2018-04-27 15:13 | Cardiology Progress Note ---
Date of Service April 27, 2018 Assessment & Plan (1) Acute [place], true posterior wall: (2) HTN (hypertension): (3) Dyslipidemia: Increase activity as tolerated , will have pt walk in unit with nursing assist. If no angina plan for discharge tomorrow. Plan for outpatient low intensity exercise/pharmacologic nuclear stress test to be performed at [facility] within about 2 weeks. I anticipate there will be reversible ischemia in the RCA territory with findings of chronic diffuse RCA disease on cardiac catheterization with left to right collaterals. The patient also has an intermediate residual LAD lesion at the time of initial cardiac catheterization. If there is evidence of LAD territory ischemia, we will plan on referring for repeat cardiac catheterization. If there is evidence of RCA territory ischemia, plus symptoms of angina despite trial of medical therapy, will consider referral to tertiary center for consideration of [employer] PROFESSIONAL of the RCA if there is no hemodynamically significant LAD stenosis. I am concerned about the cost of Brilinta for this patient who is a retiree with no commercial insurance. Therefore transitioned back to clopidogrel. Plan on reloading him with clopidogrel 300 mg this evening at 2100 when his next dose of Brilinta would be due, and then transitioning to 75 mg daily starting tomorrow 04/28/18. Disposition: Patient able to ambulate in the unit today and tomorrow without angina, anticipate discharge tomorrow. I offered to arrange stress testing test minus cardiology follow-up at [facility] versus [facility], and the patient would like to maintain his care with me at [facility]. Subjective Chief complaint: Follow-up chest pain, [place] Subjective: Patient seen in follow-up. He is feeling well. He is now in room 202. Telemetry reveals stable sinus rhythm with occasional supraventricular and ventricular ectopy and no sustained arrhythmia. Patient has ambulated a limited basis to the bathroom, but has not been out of bed to walk in the hallway yet. He has no anginal symptoms in bed. Review of Systems All systems reviewed & are unremarkable except as noted in HPI & below Physical Exam 2 Vital Signs (Past 24 Hours): Last Vital Signs Temp 36.4 C L 04/27/18 11:15 Pulse 52 L 04/27/18 11:15 Resp 18 04/27/18 11:15 BP 144/70 H 04/27/18 11:15 Pulse Ox 98 04/27/18 11:15 Constitutional: well developed; no acute distress Respiratory: normal respiratory effort, lungs clear to auscultation Cardiovascular: Rate/Rhythm: regular rate Heart Sounds: no murmur Extremities: no edema R LE femoral arterial access site with mild ecchymosis , no hematoma Neurologic: moves all extremities and awake; no focal motor deficits _ (1) HTN (hypertension) Hypertension type: essential hypertension Qualified Code(s): I10 - Essential (primary) hypertension
[2018-04-27 19:04] VITALS: O2SAT 97
--- NOTE | 2018-04-27 20:25 | Hospitalist Progress Note ---
Date of Service April 27, 2018 Assessment & Plan (1) Acute MS, true posterior wall: s/p Stent Placement 04/26/18 stable overall echo with preserved EF plan for stress test as outpatient and repeat cardiac cath/PCI continue: ASA, Plavix, Metoprolol, Lipitor possible d/c in AM (2) Chronic kidney disease, stage III (moderate): stable (3) Hypothyroidism: Continue levothyroxine 175 micrograms p.o. daily (4) Hypertension: Continue lisinopril 5 mg p.o. daily (5) Dyslipidemia: Atorvastatin 40 mg p.o. daily (6) Diet-controlled type 2 diabetes mellitus: Outpatient hemoglobin A1c November 2017 was 6.4 - A1c 7.3 Pharmacy glycemic control consulted (7) History of TIA (transient ischemic attack): Currently takes clopidogrel 75 mg p.o. daily and aspirin 81 mg p.o. daily (8) DVT prophylaxis: Lovenox Disposition anticipate d/c home tomorrow Subjective ff up for acute MS s/p stent resting in bedside chair comfortable denies chest pain, dyspnea no dizziness, palpitations denies other symptoms Physical Exam 2 Vital Signs (Past 24 Hours): Last Vital Signs Temp 36.6 C 04/27/18 19:03 Pulse 66 04/27/18 19:03 Resp 18 04/27/18 19:03 BP 140/76 04/27/18 19:03 Pulse Ox 97 04/27/18 19:03 Physical Exam: General- oriented x 3, not in distress, speaks in sentences with no effort or accessory muscle use Eyes- anicteric Neck- no JVD Lungs- clear BS BL, no rales/wheezes Heart- normal rate, regular rhythm; no murmurs Abdomen- normal bowel sounds, nondistended, soft, nontender Extremities- no pretibial edema, no calf tenderness Neuro- alert, oriented x 3; no gross focal neurologic deficits Skin- warm & dry Results & Data Laboratory Results Laboratory Results - last 24 hr 04/26/18 04/27/18 04/27/18 20:51 05:41 05:41 WBC 12.47 H RBC 4.39 L Hgb 13.8 L Hct 41.0 L MCV 93.4 MCH 31.4 MCHC 33.7 RDW Std Deviation 45.1 RDW Coeff of Shyam 13.1 Plt Count 233 MPV 11.1 H Immature Gran % (Auto) 0.4 Neut % (Auto) 64.5 Lymph % (Auto) 19.4 [place] % (Auto) 9.5 Eos % (Auto) 5.9 Baso % (Auto) 0.3 Immature Gran # (Auto) 0.05 H Neut # (Auto) 8.03 H Lymph # (Auto) 2.42 [place] # (Auto) 1.19 H Eos # (Auto) 0.74 H Baso # (Auto) 0.04 Sodium 139 Potassium Chloride 109 H Carbon Dioxide 22 Anion Gap 8.0 BUN 26 H Creatinine 1.24 Est Cr Clr Drug Dosing 63.1 Est GFR ( Amer) 63.7 Est GFR (Non-Af Amer) 54.9 BUN/Creatinine Ratio 20.6 H Glucose 142 H POC Glucose 146 H Calcium 8.1 L TSH 1.110 04/27/18 04/27/18 04/27/18 06:54 07:20 11:31 WBC RBC Hgb Hct MCV MCH MCHC RDW Std Deviation RDW Coeff of Shyam Plt Count MPV Immature Gran % (Auto) Neut % (Auto) Lymph % (Auto) [place] % (Auto) Eos % (Auto) Baso % (Auto) Immature Gran # (Auto) Neut # (Auto) Lymph # (Auto) [place] # (Auto) Eos # (Auto) Baso # (Auto) Sodium Potassium 4.2 Chloride Carbon Dioxide Anion Gap BUN Creatinine Est Cr Clr Drug Dosing Est GFR ( Amer) Est GFR (Non-Af Amer) BUN/Creatinine Ratio Glucose POC Glucose 147 H 156 H Calcium TSH 04/27/18 04/27/18 16:14 20:13 WBC RBC Hgb Hct MCV MCH MCHC RDW Std Deviation RDW Coeff of Shyam Plt Count MPV Immature Gran % (Auto) Neut % (Auto) Lymph % (Auto) [place] % (Auto) Eos % (Auto) Baso % (Auto) Immature Gran # (Auto) Neut # (Auto) Lymph # (Auto) [place] # (Auto) Eos # (Auto) Baso # (Auto) Sodium Potassium Chloride Carbon Dioxide Anion Gap BUN Creatinine Est Cr Clr Drug Dosing Est GFR ( Amer) Est GFR (Non-Af Amer) BUN/Creatinine Ratio Glucose POC Glucose 119 H 128 H Calcium TSH
[2018-04-27] MEDS ORDERED: CLOPIDOGREL BISULFATE 300 MG TAB PO SCH (21:00)
[2018-04-28] MEDS: LEVOTHYROXINE SODIUM 175 MCG TABLET PO SCH (05:31)
[2018-04-28 05:54] LABS: Basophils # (auto) 0.05 K/uL (0-0.2); Basophils % (auto) 0.4 %; Eosinophils # (auto) 0.77 K/uL (0-0.5); Eosinophils % (auto) 5.8 %; Hematocrit (blood only) 39.2 % (42-52); Hemoglobin 13.4 g/dL (14.0-18.0); Immature Granulocytes # (auto) 0.08 K/uL (0.00-0.02); Immature Granulocytes % (auto) 0.6 %; Lymphocytes # (auto) 2.61 K/uL (1.2-3.4); Lymphocytes % (auto) 19.8 %; Mean Corpuscular Hgb Conc 34.2 g/dL (32-36); Mean Corpuscular Volume 92.2 fL (80-100); Mean Platelet Volume 10.8 fL (7.4-10.4); Monocytes # (auto) 1.18 K/uL (0.11-0.59); Monocytes % (auto) 8.9 %; Neutrophils # (auto) 8.51 K/uL (1.4-6.5); Neutrophils % (auto) 64.5 %; Platelet Count 224 K/uL (130-400); RDW Standard Deviation 43.8 fL (36.4-46.3); Red Blood Count 4.25 M/uL (4.7-6.1)
[2018-04-28 06:32] LABS: Est GFR (African American) 62.5; Est GFR (Non-African American) 53.9
[2018-04-28 06:33] LABS: BUN Creatinine Ratio 22.5 (10-20); Calcium 7.9 mg/dl (8.5-10.1); Creatinine Clr Calc Pharmacy 62.4 ml/min
[2018-04-28] MEDS: ASPIRIN 81 MG ECTAB PO SCH (08:49)
[2018-04-28] MEDS: METOPROLOL TARTRATE 25 MG TAB PO SCH (08:49)
[2018-04-28] MEDS: LISINOPRIL 10 MG TAB PO SCH (08:49)
[2018-04-28] MEDS: ATORVASTATIN 40 MG TAB PO SCH (08:49)
[2018-04-28] MEDS: ENOXAPARIN INJ 40 MG/0.4 ML SYR SQ SCH (08:53)
[2018-04-28] MEDS: INSULIN GLARGINE SOLOSTAR 100 UNITS/ML 3 ML PEN SC SCH (08:56)
[2018-04-28] MEDS: INSULIN ASPART 100 UNITS/ML 3 ML PEN SC SCH ×2 (08:57→12:15)
[2018-04-28] MEDS ORDERED: CLOPIDOGREL BISULFATE 75 MG TAB PO SCH (09:00)
--- NOTE | 2018-04-28 11:31 | Hospitalist Progress Note ---
Date of Service April 28, 2018 Assessment & Plan (1) Acute [place], true posterior wall: s/p Stent Placement 04/26/18 stable overall echo with preserved EF plan for stress test as outpatient in 2 weeks c/o cardio clinic and possible repeat cardiac cath/PCI continue: ASA, Plavix, Metoprolol, Lipitor cleared by PT to return home with PT/OT, always use walker dc home with home health services pt/ot ff up with PCP 05/03 ff up with Cardio in 2 weeks (2) Chronic kidney disease, stage III (moderate): stable (3) Hypothyroidism: Continue levothyroxine 175 micrograms p.o. daily (4) Hypertension: Continue lisinopril 5 mg p.o. daily (5) Dyslipidemia: Atorvastatin 40 mg p.o. daily (6) Diet-controlled type 2 diabetes mellitus: Outpatient hemoglobin A1c November 2017 was 6.4 - A1c 7.3 Pharmacy glycemic control consulted on Lantus and ISS as in patient - transition to Glipizide 2.5mg po daily monitor BSGs amd adjust dose accordingly (7) History of TIA (transient ischemic attack): Currently takes clopidogrel 75 mg p.o. daily and aspirin 81 mg p.o. daily (8) DVT prophylaxis: Lovenox Disposition dc home with home health services pt/ot ff up with PCP 05/03 ff up with Cardio in 2 weeks Subjective ff up for acute MN s/p stent seen resting in bed, comfortable denies chest pain, dyspnea, palpitations, dizziness, nausea no bleeding walked with PT, denies symptoms no other symptoms states he is ready and would like to be discharged today Physical Exam 2 Vital Signs (Past 24 Hours): Last Vital Signs Temp 36.4 C L 04/28/18 07:27 Pulse 62 04/28/18 07:27 Resp 18 04/28/18 07:27 BP 148/70 H 04/28/18 07:27 Pulse Ox 97 04/28/18 07:27 Physical Exam: General- oriented x 3, not in distress, speaks in sentences with no effort or accessory muscle use Eyes- anicteric Neck- no JVD Lungs- clear BS BL no rales/wheezing Heart- normal rate, regular rhythm; no murmurs Abdomen- normal bowel sounds, nondistended, soft, nontender Extremities- no pretibial edema, no calf tenderness Neuro- alert, oriented x 3; no gross focal neurologic deficits Skin- warm & dry Results & Data Laboratory Results Laboratory Results - last 24 hr 04/27/18 04/27/18 04/27/18 11:31 16:14 20:13 WBC RBC Hgb Hct MCV MCH MCHC RDW Std Deviation RDW Coeff of Shyam Plt Count MPV Immature Gran % (Auto) Neut % (Auto) Lymph % (Auto) [place] % (Auto) Eos % (Auto) Baso % (Auto) Immature Gran # (Auto) Neut # (Auto) Lymph # (Auto) [place] # (Auto) Eos # (Auto) Baso # (Auto) Sodium Potassium Chloride Carbon Dioxide Anion Gap BUN Creatinine Est Cr Clr Drug Dosing Est GFR ( Amer) Est GFR (Non-Af Amer) BUN/Creatinine Ratio Glucose POC Glucose 156 H 119 H 128 H Calcium 04/28/18 04/28/18 04/28/18 05:25 05:25 06:59 WBC 13.20 H RBC 4.25 L Hgb 13.4 L Hct 39.2 L MCV 92.2 MCH 31.5 MCHC 34.2 RDW Std Deviation 43.8 RDW Coeff of Shyam 13.0 Plt Count 224 MPV 10.8 H Immature Gran % (Auto) 0.6 Neut % (Auto) 64.5 Lymph % (Auto) 19.8 [place] % (Auto) 8.9 Eos % (Auto) 5.8 Baso % (Auto) 0.4 Immature Gran # (Auto) 0.08 H Neut # (Auto) 8.51 H Lymph # (Auto) 2.61 [place] # (Auto) 1.18 H Eos # (Auto) 0.77 H Baso # (Auto) 0.05 Sodium 138 Potassium 4.3 Chloride 110 H Carbon Dioxide 23 Anion Gap 5.0 BUN 28 H Creatinine 1.26 Est Cr Clr Drug Dosing 62.4 Est GFR ( Amer) 62.5 Est GFR (Non-Af Amer) 53.9 BUN/Creatinine Ratio 22.5 H Glucose 130 H POC Glucose Calcium 7.9 L 04/28/18 04/28/18 07:15 10:52 WBC RBC Hgb Hct MCV MCH MCHC RDW Std Deviation RDW Coeff of Shyam Plt Count MPV Immature Gran % (Auto) Neut % (Auto) Lymph % (Auto) [place] % (Auto) Eos % (Auto) Baso % (Auto) Immature Gran # (Auto) Neut # (Auto) Lymph # (Auto) [place] # (Auto) Eos # (Auto) Baso # (Auto) Sodium Potassium Chloride Carbon Dioxide Anion Gap BUN Creatinine Est Cr Clr Drug Dosing Est GFR ( Amer) Est GFR (Non-Af Amer) BUN/Creatinine Ratio Glucose POC Glucose 132 H 202 H Calcium
[2018-04-28 11:32] VITALS: PULSE 67; TEMP 97.4
--- NOTE | 2018-04-28 12:40 | Cardiology Progress Note ---
Date of Service April 28, 2018 Assessment & Plan (1) Acute [place], true posterior wall: (2) HTN (hypertension): (3) Dyslipidemia: Patient stable for discharge today. He did have a asymptomatic run of nonsustained ventricular tachycardia, 10 beats. Echocardiogram revealed normal LVEF, with a small sized wall motion abnormality encompassing the basal portion of the inferior and posterior smith. Is difficult to determine the acuity versus chronicity of these wall motion abnormalities as he has not had an echocardiogram for years, and the inferior wall motion epidurogram be may be explained by his chronic right coronary artery disease. At present, I do not think this finding of nonsustained ventricular tachycardia needs to change his management plan at present. Ongoing workup for residual ischemia is already planned as an outpatient. Proceed with plan for discharge on aspirin, clopidogrel, metoprolol tartrate, atorvastatin, and lisinopril. Although he was initially treated with Brilinta in the cardiac [employer]ch[employer], I have transitioned him to clopidogrel due to cost considerations. He had previously been on clopidogrel on a chronic basis. Outpatient follow-up with me as already been requested, will plan for a stress test in 1-2 weeks. Subjective Chief complaint: follow-up chest pain, myocardial infarction Subjective: Patient feeling well today. He was out of bed yesterday with the assistance of nursing and was able to walk but did better in terms of the stability with the addition of a walker. He has been seen by physical therapy today, and a walker was recommended and home physical therapy Telemetry was reviewed and revealed a 10 beat run of nonsustained ventricular tachycardia (asymptomatic) this morning 04/28/18 at 7:20 AM. Review of Systems All systems reviewed & are unremarkable except as noted in HPI & below Physical Exam 2 Vital Signs (Past 24 Hours): Last Vital Signs Temp 36.3 C L 04/28/18 11:00 Pulse 67 04/28/18 11:00 Resp 20 04/28/18 11:00 BP 134/68 04/28/18 11:00 Pulse Ox 97 04/28/18 11:00 Physical Exam: General: no acute distress and stated age Eyes: conjunctiva are pink and non-injected, sclera clear Neck: normal jugular venous pulse, no hepatojugular reflux Chest: normal shape and normal respiratory effort Lungs: clear to auscultation and percussion Cardiac Exam: - regular heart sounds, no murmurs, rubs, or gallops, no jugular venous distention Abdomen: abdomen soft, non-tender, no abnormal masses and no hepatosplenomegaly Musculoskeletal: Mild gait instability noted for observation by nursing and physical therapy Extremities: no edema and no cyanosis Neuro:awake, coversant, follows commands, no focal motor deficits Psych: appropriate affect and insight. Results & Data Laboratory Results CBC 04/28/18 Range/Units 05:25 WBC 13.20 H (4.8-10.8) K/uL RBC 4.25 L (4.7-6.1) M/uL Hgb 13.4 L (14.0-18.0) g/dL Hct 39.2 L (42-52) % Plt Count 224 (130-400) K/uL Neut # (Auto) 8.51 H (1.4-6.5) K/uL Lymph # (Auto) 2.61 (1.2-3.4) K/uL [place] # (Auto) 1.18 H (0.11-0.59) K/uL Eos # (Auto) 0.77 H (0-0.5) K/uL Baso # (Auto) 0.05 (0-0.2) K/uL Comprehensive Metabolic Panel 04/28/18 04/28/18 Range/Units 05:25 06:59 Sodium 138 (136-145) mmol/L Potassium 4.3 (3.5-5.1) mmol/L Chloride 110 H (98-107) mmol/L Carbon Dioxide 23 (21-32) mmol/L BUN 28 H (7-18) mg/dl Creatinine 1.26 (0.6-1.4) mg/dl Glucose 130 H (70-99) mg/dl Calcium 7.9 L (8.5-10.1) mg/dl Intake and Output 04/27/18 04/28/18 04/28/18 22:59 06:59 14:59 Intake Total 275 / 275 Output Total / 700 / 700 Balance -150 / -150 -700 / -700 Intake: Oral 275 / 275 Output: Urine / / 700 Other: Weight 112.1 kg _ (1) HTN (hypertension) Hypertension type: essential hypertension Qualified Code(s): I10 - Essential (primary) hypertension
[2018-04-28 13:12] VITALS: BP 140/76
--- NOTE | 2018-04-29 11:27 | Discharge Summary ---
Date of Service April 29, 2018 Admission HPI Per Admitting Provider This is a 77-year-old male who was shoveling snow this morning with chest pain. 911 was called and the ambulance transported the patient from his home to [facility] emergency department. Patient was found to have ST changes in the posterior section with rapid development of further ST changes. A heart alert was called and patient was presented to the cardiac catheterization lab with Dr. Kim. A single drug-eluting stent was placed to the RCA. Patient had no complications from the procedure. Patient was started on Brilinta. It was then discovered the patient was also on clopidogrel at home per patient list from [facility] in [place]. This will be clarified by the patient's family who does not have a med list or meds present at this time. The patient follows with Dr. Britton at the [facility]. He has a past medical history of peripheral vascular disease, stage III chronic kidney disease, hypothyroidism, psoriasis vulgaris, hearing loss, hypertension, dyslipidemia, and history of TIA, diabetes mellitus type 2. His most recent hemoglobin A1c was in November 2017 and was 6.4. The patient denies any insulin use or diabetic oral medications. The patient was seen in the catheterization lab status post PCI and had no chest pain, nausea, vomiting, diarrhea. He has no recent illness. He was doing well until this morning when he had the chest pain. He denies any dysphasia. He has no difficulty with eating. He is a former smoker having quit smoking April 06, 1959 with a 1 pack/day 10- pack-year history He lives with his and Meño Garrison. In discussion with his he is a level 1 full code. Outpatient medications include: Levothyroxine 175 mcg daily Lisinopril 5 mg p.o. daily Clopidogrel 75 mg daily Lipitor 40 mg p.o. daily Lorazepam 0.5 mg 3 times daily as needed for anxiety Aspirin 81 mg p.o. daily Admission Exam Per Admitting Provider Vital Signs (Past 24 Hours): Last Vital Signs Pulse 83 04/25/18 10:18 Resp 16 04/25/18 10:18 BP 147/75 H 04/25/18 10:12 Pulse Ox 95 04/25/18 10:12 Physical Exam: GENERAL : No acute distress. Pleasant EYES: No icterus, gaze conjugate NOSE: No evidence of epistaxis MOUTH: No lesions or candidiasis NECK: Supple, no carotid bruits or stridor appreciated. There is a well- healed surgical scar over the right carotid artery LUNGS: CTA B/L, no wheezes, rales or rhonchi HEART: Regular, rate controlled. No ectopy ABDOMEN: Soft, NT, ND, BS Present EXTREMITIES: No LE edema, palpable pedal pulse intact on right. Pedal pulse by doppler on left. Left foot is cooler than right foot NEURO: A&OX3 Principal Diagnosis ACUTE MYOCARDIAL INFARCTION Discharge Exam Vital Signs (Past 24 Hours): Last Vital Signs Temp 36.4 C L 04/28/18 07:27 Pulse 62 04/28/18 07:27 Resp 18 04/28/18 07:27 BP 148/70 H 04/28/18 07:27 Pulse Ox 97 04/28/18 07:27 Physical Exam: General- oriented x 3, not in distress, speaks in sentences with no effort or accessory muscle use Eyes- anicteric Neck- no JVD Lungs- clear BS BL no rales/wheezing Heart- normal rate, regular rhythm; no murmurs Abdomen- normal bowel sounds, nondistended, soft, nontender Extremities- no pretibial edema, no calf tenderness Neuro- alert, oriented x 3; no gross focal neurologic deficits Skin- warm & dry Discharge Data Allergies Allergy/AdvReac Type Severity Reaction Status Date / Time latex Allergy Rash Verified 04/25/18 18:24 Consultations 04/25/18 10:45 ED Decision to Admit Stat 04/25/18 11:16 Consult Case Management - Discharge Planning Routine 04/25/18 11:17 Consult Long Goods Drier Routine 04/25/18 11:21 Consult Cardiology Routine 04/25/18 11:23 Consult Cardiac Rehabilitation Routine Procedures Performed Operation Date: 04/25/18 10:00 Actual Procedures p Aspiration/PCI w/HARLEEN for Stemi(Not Applicable) - Iron Moran MD s Cineradiography w/Routine Exam - Iron Moran MD s Cath, Left with Cors and Vent - Iron Moran MD Ordered Studies 04/25/18 10:03 CL Cath Imgs for PACS use only Stat 04/27/18 05:39 US venous doppler LE LT Urgent Hospital Course (1) Acute VA, true posterior wall: 04/26/18 S/P Left heart catheterization, coronary cineangiography, PCI with drug-eluting stent x1 ostial and proximal circumflex, radiological interpretation and supervision. remained stable overall echo with preserved EF transferred from ICU to [facility] plan for stress test as outpatient in 2 weeks c/o cardio clinic and possible repeat cardiac cath/PCI PER LEVERMAN Dr. Davison: Plan for outpatient low intensity exercise/pharmacologic nuclear stress test to be performed at [facility] within about 2 weeks. I anticipate there will be reversible ischemia in the RCA territory with findings of chronic diffuse RCA disease on cardiac catheterization with left to right collaterals. The patient also has an intermediate residual LAD lesion at the time of initial cardiac catheterization. If there is evidence of LAD territory ischemia, we will plan on referring for repeat cardiac catheterization. If there is evidence of RCA territory ischemia, plus symptoms of angina despite trial of medical therapy, will consider referral to tertiary center for consideration of CAMPGROUND MANAGER of the RCA if there is no hemodynamically significant LAD stenosis. continue: ASA, Plavix, Metoprolol, Lipitor cleared by PT to return home with PT/OT, always use walker dc home with home health services pt/ot ff up with PCP 05/03 ff up with Cardio in 2 weeks- Dr Davison (2) Diet-controlled type 2 diabetes mellitus: Outpatient hemoglobin A1c November 2017 was 6.4 - A1c 7.3 Pharmacy glycemic control consulted on Lantus and ISS as in patient - transition to Glipizide 2.5mg po daily monitor BSGs amd adjust dose accordingly (3) Chronic kidney disease, stage III (moderate): stable (4) Hypothyroidism: Continue levothyroxine 175 micrograms p.o. daily (5) Hypertension: Continue lisinopril 5 mg p.o. daily (6) Dyslipidemia: Atorvastatin 40 mg p.o. daily (7) History of TIA (transient ischemic attack): Currently takes clopidogrel 75 mg p.o. daily and aspirin 81 mg p.o. daily (8) DVT prophylaxis: Lovenox Disposition dc home with home health services pt/ot ff up with PCP 05/03 ff up with Cardio in 2 weeks Total Time Total Time Spent Total Time Spent (In Minutes): 50 minutes Discharge Plan Discharge Items Patient Disposition: Home - Home Health Services Reason For Visit: ACUTE STMI Discharge Diagnosis: HEART ATTACK (ACUTE MYOCARDIAL INFARCTION) Discharge Goals: Diagnostic testing and Therapeutic intervention Activity: As commented below Activity Comment: ALWAYS USE WALKER, AMBULATE CAREFULLY, NO HEAvY EXERTION Lifting: Wait until after follow-up appointment Sexual Activity: Wait until after follow-up appointment Exercise/Sports: Wait until after follow-up appointment Driving/Machine Use Comment: NO DRIVING UNTIL ALLOWED BY LEVERMAN Non-emergency contact: Primary Care Provider and Flower Grader Call non-emergency contact if: you have any medication questions, you have a fever, your wound has increased redness, your wound has increased drainage and your wound pain has increased Follow-up/Referrals: Chidi Davison DO [Flower Grader] - Reed Britton D.O. [Primary Care Provider] - 05/03/18 10:45 am Diet: Carb Consistent or DM2 and Heart Healthy Addtl Provider Instructions: FOLLOW UP WITH PRIMARY CARE PHYSICIAN NOTED ABOVE. FOLLOW UP WITH [facility] IN 2 WEEKS FOR A STRESS TEST. THE CARDIOLOGY CLINIC WILL CALL YOU REGARDING YOUR APPOINTMENT SCHEDULE. PLEASE REVIEW YOUR MEDICATION LIST AND FOLLOW INSTRUCTIONS CAREFULLY. CALL YOUR PRIMARY CARE PHYSICIAN OR LEVERMAN IF YOU HAVE ANY QUESTIONS. FOR HOME HEALTH NURSE: PLEASE MONITOR BLOOD GLUCOSE LEVELS. Who to Call and When: Medical Emergencies: If at any time you feel your situation is an emergency, please call 911 immediately. Call 911 immediately or go to your nearest Emergency Room if you experience any of the following: Warning Signs and Symptoms of a Heart Attack Chest pain Shortness of breath Home Care: Take your medications exactly as directed. Don't skip doses. Remember that recovery after a heart attack takes time. Plan to rest for at lease 4-8 weeks while you recover. Then return to normal activity when your doctor says it's okay. Ask your doctor about joining a heart rehabilitation program. Tell your doctor if you are feeling depressed. Feelings of sadness are common after a heart attack, but it is important that you speak to someone if you are feeling overwhelmed by these feelings. If you are having chest pain, call 911 for an ambulance. Do NOT drive yourself to the hospital. Ask your family members to learn CPR. Learn to take your own blood pressure and pulse. Keep a record of your results. Ask your doctor when you should seek emergency medical attention. He or she will tell you which blood pressure reading is dangerous. Lifestyle Changes: Maintain a healthy weight. Get help to lose any extra pounds. Cut back on salt. Limit canned, dried, packaged, and fast foods. Don't add salt to your food. Season foods with herbs instead of salt when you cook. Break the smoking habit. Enroll in a stop-smoking program to improve your chances of success. Limit fatty foods. Ask your doctor about having your lipid levels checked regularly. Build up your activity according to your doctor's recommendation. Ask your doctor when it's okay to resume sexual activity. Tell your doctor about any erectile dysfunction (ED) medication you are taking. Some ED medications are not safe if you take certain heart medications. Try to manage stress. Follow Up: It is important for you to keep your follow up appointments with your medical provider. Prescriptions: New atorvastatin 40 mg Tablet 80 mg PO QAM 30 Days Qty: 60 RF: 1 aspirin [Ecotrin Low Strength] 81 mg Tablet,Delayed Release (Dr/Ec) 81 mg PO QAM 30 Days Qty: 30 RF: 1 metoprolol tartrate 25 mg Tablet 25 mg PO BID 30 Days Qty: 60 RF: 1 glipizide 2.5 mg tablet extended release 24hr 2.5 mg PO DAILY Qty: 30 RF: 1 nitroglycerin [Nitrostat] 0.3 mg tablet, sublingual 0.3 mg Sublingual UD Qty: 10 RF: 0 clopidogrel 75 mg tablet 75 mg PO DAILY 30 Days Qty: 30 RF: 1 lisinopril 10 mg tablet 10 mg PO DAILY 30 Days Qty: 30 RF: 1 Continue levothyroxine 175 mcg tablet 175 mcg PO DAILY RF: 0 Discontinued atorvastatin 40 mg tablet 40 mg PO DAILY RF: 0 Stand-Alone Forms: [facility] Discharge Orders: Discharge Order (Routine); Ordered 04/28/18 Ordered By: Augusto Wood Admission Data Admit Date/Time: 04/25/18 11:16 Attending Provider: Augusto Wood Admit Provider: Adrian Kim Primary Care Provider: Reed Britton V. Other Providers: Augusto Wood ; Ted Hebert ; Angelo Oneal ; Janice Ayon ; Ulices Garduno ; Ivonne Willett ; Nuria Saenz ; Vicky Beatty ; Dominic Burgess ; Maykel Cassidy ; Matt Botello ; Mirna Cary ; Odalis Mae ; Beryl Montesinos ; El Birmingham ; Jovanny Ventura ; Prerna Nicholson ; Rachele Williamson ; Jovanny Walton ; Chidi Davison Service: Telemetry Other Interventions: Discharge Summary Assessment (RN) Last Done: 04/28/18 13:09 DC Date/Time DO NOT enter until pt leaves facility: 04/28/18 14:18
== END 2018-04-28 14:18 | disposition home health service (06) | DRG 247 ==
LOC: ED 09:31 → CC 10:26 → 1E 11:16 → SUATTDRO 11:16 → 2E 04-26 13:07